=== PATIENT | female | born 1985 | race Caucasian/White ===

== ENCOUNTER 2024-06-02 03:23 | Emergency (ER) | payer OTHER, SELFPAY ==
[2024-06-02 03:23] VITALS: BMI 39.6
[2024-06-02 03:29] VITALS: BP 159/105; PULSE 83; RESP 18; TEMP 36.6; O2SAT 97
--- NOTE | 2024-06-02 03:34 | XR_ITS ---
Examination: CT abdomen and pelvis without contrast. Coronal 3-D reconstructions. Sagittal 2-D reconstructions. Date and time of exam:June 02, 2024 0445 hrs. Indications: Upper abdominal pain epigastric pain today, history gallstones diagnosed one year ago CTDI: vol (mGy): 13.81 DLP: (mGycm): 875 Technique: Axial images of the abdomen have been obtained, 3 mm slice thickness Intravenous contrast material has not been administered. Low dose protocols were performed. One or more of the following dose reduction techniques were used; automated exposure control, adjustment of the mA and/or KV according to patient size, use of iterative reconstruction technique. Findings: No focal liver or splenic lesions Cholelithiasis, gallbladder wall does not appear thickened No pancreatic or adrenal mass Minimal left hydronephrosis secondary to 7 mm proximal left ureteral calculus Aorta normal size Normal appendix No bowel obstruction No pelvic mass No bladder mass or bladder calculi Intact osseous structures Impression: Cholelithiasis, negative for cholecystitis Minimal left hydronephrosis secondary to 7 mm proximal left ureteral calculus
--- NOTE | 2024-06-02 03:34 | XR_ITS ---
Examination: Abdomen sonogram, Limited Date and time of exam: June 02, 2024 0418 hrs. Indications: Onset severe epigastric pain and nausea beginning 9:00 PM last night Technique: Real-time rahman scale transabdominal sonographic images of the upper abdomen obtained. Findings: Multiple gallstones Gallbladder wall 0.3 cm no edema Common bile duct 0.3 cm Pancreatic head 2.3 cm Liver 22 cm fatty infiltration mildly lobular contour no focal liver lesions Normal hepatopedal portal venous flow Patent IVC Impression: Cholelithiasis, negative for cholecystitis Significant hepatomegaly fatty liver suspect primary hepatocellular disease
--- NOTE | 2024-06-02 03:45 | PD.EDABDPN ---
ED Abdominal Pain RME/HPI General Chief Complaint: Abdominal Pain Stated complaint: EPIGASTRIC PAIN HX GALLSTONES Time seen by provider: 06/02/24 03:27 Arrival date/time: 06/02/24 03:23 RME / HPI RME / HPI narrative: This section includes all my notes and documentations, including HPI, PE, and ED course. Franklin Good MD HPI: 39-year-old female here with severe epigastric pain and severe nausea for the past several hours. Has known gallstones. No fever. No urinary symptoms. Had abdominal surgery due to endometriosis. No history of other abdominal surgery. No other complaints. ROS: All negative except as documented in HPI. Physical Exam: General: Alert and oriented. In severe pain. Eyes: Conjunctivae and lids clear. ENT: No nasal congestion. Neck: Supple. Heart: RRR. Lungs: No respiratory distress. Good air movement. No rhonchi, wheezing, rales. Abdomen: Soft with severe epigastric tenderness. Normal bowel sounds. No distension. No rebound or guarding. Back: No CVA tenderness. Skin: Warm and dry. Neuro: Alert and oriented X 3. I ordered Zofran and Toradol and morphine and diagnostic tests. At 6 AM on 06/02/2024, the care of the patient was transferred to Dr. HINSON. Franklin Good MD Related Data Home Medications ?Medication ?Instructions ?Recorded ?Confirmed labetalol 200 mg tablet 200 mg PO TID 04/29/19 05/07/19 Previous Rx's ?Medication ?Instructions ?Recorded acetaminophen 325 mg tablet 325 - 650 mg (1 - 2 x 325 mg) PO 06/02/19 (Tylenol) Q4H #30 tabs diphenhydramine HCl 25 mg tablet 25 mg PO Q6H #30 tabs 06/02/19 (Benadryl Allergy) guaifenesin 400 mg tablet 400 mg PO Q6H #20 tabs 06/02/19 Allergies Allergy/AdvReac Type Severity Reaction Status Date / Time niacin Allergy Severe Anaphylaxis Verified 06/02/24 03:24 Bee Stings Allergy Severe Anaphylaxis Uncoded 06/02/24 03:24 Course Quality Measures none Orders Category Date Time Status Saline [Insert IV] NOW Care 06/02/24 03:33 Active Straight [In and Out Catheter] X1 Care 06/02/24 03:[address] abdomen pelvis wo con Stat Exams 06/02/24 03:34 Taken US gall bladder Stat Exams 06/02/24 03:34 Taken Amylase Stat Lab 06/02/24 04:05 Completed CBC Stat Lab 06/02/24 04:05 Completed CMP [Comprehensive Metabolic Panel] Stat Lab 06/02/24 04:05 Completed HCG Qualitative,Urine Stat Lab 06/02/24 03:34 Ordered HCG,Qualitative Serum Stat Lab 06/02/24 04:05 Completed Lipase Stat Lab 06/02/24 04:05 Completed Magnesium Stat Lab 06/02/24 04:05 Completed UA, C/S IF [Urinalysis, C/S if Indicated] Stat Lab 06/02/24 03:34 Ordered Ketorolac Inj [Toradol Inj] Med 06/02/24 03:33 Discontinued 30 mg IVP X1 ONE Morphine Inj Med 06/02/24 03:33 Discontinued 5 mg IVP X1 ONE Ondansetron Inj [Zofran Inj] Med 06/02/24 03:33 Discontinued 4 mg IV X1 ONE Vital Signs Vital signs: Vital Signs Temperature 98 F 06/02/24 03:29 Pulse Rate 83 06/02/24 03:29 Respiratory Rate 18 06/02/24 03:29 Blood Pressure 159/105 H 06/02/24 03:29 Pulse Oximetry (%) 97 06/02/24 03:29 Oxygen Delivery Method Room Air 06/02/24 03:29 Abdominal Pain MDM Patient data External records reviewed:: [facility] previous records Clinical information provided by:: patient Social determinants that could affect healthcare access:: none Patient has the following chronic illnesses:: Colitis How is presenting disease/condition affected by chronic disease/condition?: uneffected by Evaluation data The following diagnostics were reviewed and interpreted by me:: other (specify) (Diagnostic tests pending) Lab and/or radiology exams considered but not ordered:: None Interpretation Summary: Diagnostic test results pending Medications / Prescriptions Medications or Prescriptions considered but not ordered:: None Medication administrations:: Medication Administration History Discontinued Medications Ketorolac Tromethamine (Ketorolac Inj 30 Mg/Ml Vial) 30 mg IVP X1 ONE Stop: 06/02/24 03:34 Morphine Sulfate (Morphine Sulf Inj 10 Mg/Ml Vial) 5 mg IVP X1 ONE Stop: 06/02/24 03:34 Ondansetron HCl (Ondansetron Inj 2 Mg/Ml Inj 2 Ml) 4 mg IV X1 ONE; Protocol Stop: 06/02/24 03:34 Zofran and Toradol and morphine Consultations Consultation(s) initiated? (list below): No Diagnosis Differential diagnosis abdominal pain: acute appendicitis, calculus of kidney, constipation, diverticulitis, endometriosis, gastroenteritis, pancreatitis and small bowel obstruction Most likely diagnosis given after review of the tests above:: Diagnostic test results pending Admission Indicated Admission indicated?: not indicated Explain why admission is indicated or not indicated:: Diagnostic test results pending Admission Request Was there a request for admission?: No Disposition Plan Disposition Plan: other (specify) (Care of the patient was Dr. HINSON) Discharge Plan Prescriptions/Referrals Prescriptions/Med Rec: No Action labetalol 200 mg Tablet 200 mg PO TID diphenhydramine HCl [Benadryl Allergy] 25 mg tablet 25 mg PO Q6H Qty: 30 0RF guaifenesin 400 mg tablet 400 mg PO Q6H Qty: 20 0RF acetaminophen [Tylenol] 325 mg tablet 325 - 650 mg PO Q4H Qty: 30 0RF Referrals: No Primary/Family,Physician [Primary Care Provider] - In 1 week Problem List Clinical Impression: Abdominal pain Patient/Caregiver Discharge Instructions Print Language: Citizen Of [place]
[2024-06-02 04:20] LABS: Basophils # (Auto) 0.1 Thou/mm3 (0.0-0.2); Basophils % (Auto) 1 % (0-2.5); Eosinophils # (Auto) 0.3 Thou/mm3 (0.0-0.5); Eosinophils % (Auto) 2 % (0-10); Hematocrit 34.1 % (36.0-46.0); Immature Granulocytes % (Auto) 0 % (0-0); Immature Granulocytes Auto 0.02 Thou/mm3 (0.00-0.00); Lymphocytes # (Auto) 6.1 Thou/mm3 (1.0-4.8); Lymphocytes % (Auto) 51 % (10-50); Mean Corpuscular HGB Conc 32.3 g/dl (31.0-37.0); Mean Corpuscular Hemoglobin 26.3 pg (25.0-35.0); Mean Corpuscular Volume 81 fL (80-100); Monocytes # (Auto) 0.8 Thou/mm3 (0.0-0.8); Monocytes % (Auto) 6 % (0-12); Neutrophils # (Auto) 4.8 Thou/mm3 (1.8-7.7); Neutrophils % (Auto) 40 % (37-80); Nucleated Red Blood Cell % 0 /100 WBC (0); Platelet Count 269 Thou/mm3 (140-440); RDW Standard Deviation 46.3 fL (36.4-46.3); Red Blood Count 4.19 Miln/mm3 (4.00-5.20)
[2024-06-02 04:37] LABS: HCG,Qualitative Serum Negative
[2024-06-02 04:40] LABS: Alanine Aminotransferase 16 U/L (10-49); Albumin, Serum 4.2 gm/dL (3.5-5.0); Albumin/Globulin Ratio 1.6 (1.2-2.2); Alkaline Phosphatase 72 U/L (46-116); Amylase 49 U/L (30-118); Anion Gap 7 (7-16); Aspartate Amino Transferase < 10 U/L (0-34); BUN/Creatinine Ratio 14 Ratio (12-20); Bilirubin,Total 0.2 mg/dL (0.3-1.2); Blood Urea Nitrogen 11 mg/dL (9-23); Calcium 9.5 mg/dL (8.3-10.6); Calcium (Corrected) 9.5 mg/dL (8.5-10.1); Carbon Dioxide 24.1 mMol/L (20.0-31.0); Chloride 106 mMol/L (98-107); Creatinine (Component) 0.8 mg/dL (0.6-1.3); Estimated Creatinine Clearance 115.3 mL/min (>60); Globulin 2.6 gm/dL (2.3-3.5); Glucose 105 mg/dL (74-106); Lipase 51 U/L (12-53); Magnesium 1.8 mg/dL (1.6-2.6); Osmolality,Calculated 273 (275-295); Potassium 3.8 mMol/L (3.4-5.1); Sodium 137 mMol/L (136-145); Total Protein 6.8 gm/dL (5.7-8.2); eGFR > 60 See Note
--- NOTE | 2024-06-02 05:06 | PRELIM_ITS ---
Right upper quadrant abdominal ultrasound with doppler and wave doppler spectral analysis. May 092023 at 0418 hours Clinical history: RUQ tenderness. Technique: Grayscale and color flow images of the right upper quadrant are provided. Hepatic and portal veins were also imaged with color flow steve ges. Correlated with the prior CT study dated December 14, 2016.Findings:The liver is enlarged and demonst rates increased echogenicity. No intrahepatic biliary ductal dilatation. Gallstones. No gallbladder w all thickening or pericholecystic fluid is demonstrated. The common bile duct is normal in caliber at 3.0 mm. The pancreas is unremarkable to the extent visualized. The right kidney is within normal contreras its.The portal vein is patent with hepatopetal flow and normal wave Doppler spectral analysis.The hep atic veins are patent with normal wave Doppler spectral analysis.The inferior vena cava is patent.Mur phy sign is not available at the time of this report.Impression:Gallstones without evidence of acute cholecystitis.Hepatomegaly associated with liver steatosis is suspicious for steatohepatitis. Report Electronically Signed By: Jerry Paulson 06/02/2024 5:05:30 AM [EST]
--- NOTE | 2024-06-02 05:26 | PRELIM_ITS ---
CT scan of the abdomen and pelvis without intravenous contrast (axial sections with sagittal and lluvia nal reformats) June 02, 2024 0455 hoursClinical History: Upper abdominal painComparison:Ultrasoun d abdomenfrom earlier the same day.Findings:The lung bases are clear.There are multiple noncalcifuied gallstones.There is a 6 mm obstructing calculus in the left proximal ureter with mild hydroureterone phrosis. There is hepatomegaly.The pancreas, spleen and adrenals are unremarkable on this noncontrast study.No evidence of bowel obstruction. The appendix is within normal limits (images [id number]). Th ere is no mesenteric or retroperitoneal adenopathy.The urinary bladder is unremarkable. There is no f ree air. There is trace fluid in the pelvis.The uterus and adnexa are unremarkable.The osseous struct ures are unremarkable.Impression:1. Cholelithiasis.2. A 6 mm obstructing calculus in the left proxima l ureter with mild hydroureteronephrosis.3. Trace fluid in the pelvis4. Other findings as described a ladan. Report Electronically Signed By: Mercy Gautam 06/02/2024 5:26:15 AM [EST]
[2024-06-02] MEDS: MORPHINE SULF INJ 10 MG/ML VIAL 5 MG IVP (06:09)
[2024-06-02] MEDS: KETOROLAC INJ 30 MG/ML VIAL IVP (06:10)
[2024-06-02] MEDS: ONDANSETRON INJ 2 MG/ML INJ 2 ML 4 MG IV (06:10)
[2024-06-02 06:28] VITALS: PULSE 66; RESP 18; TEMP 36.7; O2SAT 98
[2024-06-02] MEDS: HYDROmorphone INJ 2 MG/ML VIAL 1 MG IVP (07:17)
--- NOTE | 2024-06-02 07:47 | PC.NURSE ---
Pt gcs 15 on stretcher, denies any pain a this time.
[2024-06-02 08:32] LABS: Collection Type, Urine Clean Catch
[2024-06-02] MEDS: TAMSULOSIN HCL 0.4 MG CAPSULE PO (08:34)
[2024-06-02] MEDS: SODIUM CHLORIDE 0.9% 1000 ML 1,000 ML 999 ML IV (08:35)
[2024-06-02 08:38] LABS: Bilirubin,Urine Negative (Negative); Blood,Urine Negative (Negative); Clarity,Urine Clear (Clear/Hazy); Color,Urine Lt-Yellow (Lt Yel-Yel); Culture Indicated,Urine Not Indicated; Glucose, Urine Negative (Negative); Ketones,Urine Negative (Negative); Leukocyte Esterase,Urine Positive (Negative); Nitrite,Urine Negative (Negative); Protein,Urine Negative (Neg - Trace); RBC,Urine 5 /hpf (0-3); Specific Gravity,Urine 1.019 (1.001-1.035); Squamous Epithelial Cell,Urine 3 /hpf (0-5); Urobilinogen,Urine Negative mg/dL (0.0-1.0); WBC,Urine 4 /hpf (0-5)
[2024-06-02 08:49] VITALS: BP 169/88; PULSE 65; RESP 18; TEMP 36.5; O2SAT 100
[2024-06-02 09:03] LABS: HCG Qualitative,Urine Negative
[2024-06-02] MEDS: LIDOCAINE VISCOUS 2% 15 ML UDC PO (09:08)
[2024-06-02] MEDS: MG HYD/AL HYD/SIME (Maalox Reg) SUSP 30 ML UDC PO (09:08)
[2024-06-02 10:42] VITALS: BP 151/105; PULSE 64; RESP 18; TEMP 36.8; O2SAT 100
[2024-06-02] MEDS: HYDROcodone/APAP 5/325 TABLET 1 TAB PO (11:26)
--- NOTE | 2024-06-02 16:00 | EDNOTE_ITS ---
Emergency Room Addendum Addendum Narrative: 1800: Care assumed from Dr. Good, the previous shift emergency physician. Past medical, surgical, social and family history reviewed. Vitals and home medications reviewed. I will assume the care of the patient at this time. Please refer to the emergency department record for history and examination from initial visit.? Physical exam by me shows patient under no acute distress at this time. 1100: Patient remains clinically stable throughout the emergency department visit. Re-assessment at the time of disposition demonstrates that the patient is in no acute distress. We reviewed all the results, analysis, and treatment plans. Patient is amenable to discharge. Strict return precautions were outlined. Patient was discharged in stable condition. Diagnoses: Abdominal pain, cholelithiasis, left ureteral calculus. RADIOLOGY Procedure(s): gall bladder Accession Number(s): [id number] cc: Franklin Good MD; Thiago Medley MD; NO PRIMARY/FAMILY,PHYSICIAN~ Examination: Abdomen sonogram, Limited Date and time of exam: June 02, 2024 0418 hrs. Indications: Onset severe epigastric pain and nausea beginning 9:00 PM last night Technique: Real-time rahman scale transabdominal sonographic images of the upper abdomen obtained. Findings: Multiple gallstones Gallbladder wall 0.3 cm no edema Common bile duct 0.3 cm Pancreatic head 2.3 cm Liver 22 cm fatty infiltration mildly lobular contour no focal liver lesions Normal hepatopedal portal venous flow Patent IVC Impression: Cholelithiasis, negative for cholecystitis Significant hepatomegaly fatty liver suspect primary hepatocellular disease Dictated By: Thiago Medley MD Procedure(s): CT abdomen pelvis wo con Accession Number(s): [id number] cc: Franklin Good MD; Thiago Medley MD; NO PRIMARY/FAMILY,PHYSICIAN~ Examination: CT abdomen and pelvis without contrast. Coronal 3-D reconstructions. Sagittal 2-D reconstructions. Date and time of exam:June 02, 2024 0445 hrs. Indications: Upper abdominal pain epigastric pain today, history gallstones diagnosed one year ago CTDI: vol (mGy): 13.81 DLP: (mGycm): 875 Technique: Axial images of the abdomen have been obtained, 3 mm slice thickness Intravenous contrast material has not been administered. Low dose protocols were performed. One or more of the following dose reduction techniques were used; automated exposure control, adjustment of the mA and/or KV according to patient size, use of iterative reconstruction technique. Findings: No focal liver or splenic lesions Cholelithiasis, gallbladder wall does not appear thickened No pancreatic or adrenal mass Minimal left hydronephrosis secondary to 7 mm proximal left ureteral calculus Aorta normal size Normal appendix No bowel obstruction No pelvic mass No bladder mass or bladder calculi Intact osseous structures Impression: Cholelithiasis, negative for cholecystitis Minimal left hydronephrosis secondary to 7 mm proximal left ureteral calculus Dictated By: Thiago Medley MD
== END 2024-06-02 11:30 | disposition home or self-care (01) ==
PROVIDERS: Emergency Medicine; Emergency Provider Emergency Medicine
DX: K80.20 Calculus of gallbladder without cholecystitis without obstruction (principal); N13.2 Hydronephrosis with renal and ureteral calculous obstruction; K76.0 Fatty (change of) liver, not elsewhere classified
CPT/HCPCS: 36415; 74176; 76705; 80053; 81001; 81025; 82150; 83690; 83735; 84703; 85025; 96374; 96375; 99284; J1885; J2270; J2405; J3490; J7030; A9270

== ENCOUNTER 2024-07-09 17:45 | Emergency (ER) | payer OTHER, SELFPAY ==
[2024-07-09 17:46] VITALS: BMI 39.6
[2024-07-09 18:46] VITALS: BP 145/89; PULSE 78; RESP 26; TEMP 36.8; O2SAT 100
[2024-07-09] MEDS: FAMOTIDINE 20 MG TABLET 40 MG PO (18:58)
[2024-07-09] MEDS: MG HYD/AL HYD/SIME (Maalox Reg) SUSP 30 ML UDC PO (18:58)
[2024-07-09] MEDS: LIDOCAINE VISCOUS 2% 15 ML UDC PO (18:58)
--- NOTE | 2024-07-09 18:59 | PD.EDABDPN ---
ED Abdominal Pain RME/HPI General Chief Complaint: Abdominal Pain Stated complaint: GALLSTONES Time seen by provider: 07/09/24 18:53 Arrival date/time: 07/09/24 17:45 39F with history of HTN and Von Willebrand's disease presents to ED with 1 day of RUQ/epigastric pain. Patient only wants GI cocktail and no diagnostics. Patient has outpatient cholecystectomy scheduled. Limitations: no limitations Related Data Home Medications ?Medication ?Instructions ?Recorded ?Confirmed labetalol 200 mg tablet 200 mg PO TID 04/29/19 05/07/19 Previous Rx's ?Medication ?Instructions ?Recorded acetaminophen 325 mg tablet 325 - 650 mg (1 - 2 x 325 mg) PO 06/02/19 (Tylenol) Q4H #30 tabs diphenhydramine HCl 25 mg tablet 25 mg PO Q6H #30 tabs 06/02/19 (Benadryl Allergy) guaifenesin 400 mg tablet 400 mg PO Q6H #20 tabs 06/02/19 ibuprofen 600 mg tablet 600 mg PO Q6H PRN pain #30 tabs 06/02/24 tamsulosin 0.4 mg capsule 0.4 mg PO QDAY #14 caps 06/02/24 Allergies Allergy/AdvReac Type Severity Reaction Status Date / Time niacin Allergy Severe Anaphylaxis Verified 07/09/24 17:45 Bee Stings Allergy Severe Anaphylaxis Uncoded 07/09/24 17:45 Review of Systems Review of Systems Systems Reviewed: All systems reviewed, normal except as documented Constitutional Constitutional: Reports system reviewed and no additional complaints, except as documented, Denies fever(s) and Denies headache(s) ENT Ears, Nose, Mouth, and Throat: Denies disequilibrium and Denies headache(s) Cardiovascular Cardiovascular: Reports system reviewed and no additional complaints, except as documented, Denies chest pain and Denies dyspnea Respiratory Respiratory: Reports system reviewed and no additional complaints, except as documented, Denies cough and Denies dyspnea Gastrointestinal Gastrointestinal: Reports system reviewed and no additional complaints, except as documented, Reports as per HPI, Reports abdominal pain, Denies nausea and Denies vomiting Neurologic Neurologic: Reports system reviewed and no additional complaints, except as documented, Denies confusion, Denies disequilibrium and Denies headache(s) Psychiatric Psychiatric: Denies confusion Past Medical History Past Medical History CARDIAC: Positive Cardiac Disorders and Hypertension; Negative Congestive Heart Failure RESPIRATORY: Negative Chronic Obstructive Pulmonary Disease (COPD) GENITOURINARY: Negative Renal Disease REPRODUCTIVE: Positive Previous Pregnancies (1) ENDOCRINE: Negative Diabetes Mellitus Type 1 or Diabetes Mellitus Type 2 Surgical History SURGICAL: Positive Section (c/s x1 breech) Social History SMOKING STATUS: Current every day smoker SECOND HAND EXPOSURE: Yes ED Exam General Limitations: Present no limitations General appearance: Present alert and in no apparent distress Head Head exam: Present atraumatic Eye Eye exam: Present normal appearance, PERRL and EOMI ENT ENT exam: Present normal exam, normal oropharynx and mucous membranes moist Neck Neck exam: Present normal inspection, full ROM and trachea midline Chest Chest inspection: Present normal inspection and symmetric chest wall rise Respiratory Respiratory exam: Present normal lung sounds bilaterally Cardiovascular Cardiovascular exam: Present regular rate, normal rhythm and normal heart sounds Abdominal Exam Abdominal exam: Present soft and normal bowel sounds Extremities Exam Extremities exam: Present normal inspection and full ROM Back Exam Back exam: Present normal inspection and full ROM Neurological Exam Neurological exam: Present alert, oriented X3 and CN II-XII intact Psychiatric Psychiatric exam: Present normal affect and normal mood Skin Skin exam: Present warm, dry, intact and normal color Course Quality Measures none Orders Category Date Time Status US gall bladder Stat Exams 07/09/24 20:14 Stop Req Famotidine [Pepcid] Med 07/09/24 18:54 Discontinued 40 mg PO X1 ONE HYDROcodone*/APAP 5/325 [Edison 5/325] Med 07/09/24 20:14 Discontinued 1 tab PO X1 ONE Lidocaine 2% Viscous [Xylocaine 2% Viscous] Med 07/09/24 18:54 Discontinued 15 ml PO X1 ONE mg Hyd/Al Hyd/Darrell Susp [Maalox Susp] Med 07/09/24 18:54 Discontinued 30 ml PO X1 ONE Vital Signs Vital signs: Vital Signs Temperature 98.2 F 07/09/24 18:46 Pulse Rate 78 07/09/24 18:46 Respiratory Rate 26 H 07/09/24 18:46 Blood Pressure 145/89 H 07/09/24 18:46 Pulse Oximetry (%) 100 07/09/24 18:46 Oxygen Delivery Method Room Air 07/09/24 18:46 O2 at 100% on RA and WNLs Abdominal Pain MDM MDM Narrative MDM Narrative:: 39F with history of HTN and Von Willebrand's disease presents to ED with 1 day of RUQ/epigastric pain. Patient only wants GI cocktail and no diagnostics. Patient has outpatient cholecystectomy scheduled. Physical exam reveals no ab tenderness. Patient is afebrile, calm, and alert. Meds improved symptoms. Patient data External records reviewed:: [facility] previous records Clinical information provided by:: patient Social determinants that could affect healthcare access:: none Patient has the following chronic illnesses:: HTN and Von Willebrand's disease How is presenting disease/condition affected by chronic disease/condition?: no chronic disease Evaluation data The following diagnostics were reviewed and interpreted by me:: other (specify) (none) Lab and/or radiology exams considered but not ordered:: not ordered Interpretation Summary: n/a Medications / Prescriptions Medications or Prescriptions considered but not ordered:: ordered Medication administrations:: Medication Administration History Discontinued Medications Hydrocodone Bitart/Acetaminophen (Hydrocodone/Apap 5/325 Tablet) 1 tab PO X1 ONE Stop: 07/09/24 20:15 Last Admin: 07/09/24 20:22 Dose: 1 tab Documented By: BRADY Al Hydrox/Mg Hydrox/Simethicone (Mg Hyd/Al Hyd/Darrell (Maalox Reg) Susp 30 Ml Udc) 30 ml PO X1 ONE Stop: 07/09/24 18:55 Last Admin: 07/09/24 18:58 Dose: 30 ml Documented By: BRADY Famotidine (Famotidine 20 Mg Tablet) 40 mg PO X1 ONE Stop: 07/09/24 18:55 Last Admin: 07/09/24 18:58 Dose: 40 mg Documented By: BRADY Lidocaine HCl (Lidocaine Viscous 2% 15 Ml Udc) 15 ml PO X1 ONE Stop: 07/09/24 18:55 Last Admin: 07/09/24 18:58 Dose: 15 ml Documented By: BRADY above Consultations Consultation(s) initiated? (list below): No Diagnosis Differential diagnosis abdominal pain: abdominal pain, acute appendicitis, calculus of kidney, constipation, diverticulitis, endometriosis, gastroenteritis, pancreatitis, small bowel obstruction and other (gastritis ) Most likely diagnosis given after review of the tests above:: ab pain Admission Indicated Admission indicated?: not indicated Admission Request Was there a request for admission?: No Disposition Plan Disposition Plan: Discharge Discharge Attestation Discharge Attestation: The patient and all family members were given an opportunity to ask questions and understood the discharge instructions. Discharge instructions specifically effects, indications for sooner follow up or return to the emergency department, and the expected course of current diagnosis. Patient condition: Stable Discharge Plan Plan Patient Disposition: HOME (Self Care) Disposition Comment: STable Prescriptions/Referrals Prescriptions/Med Rec: No Action labetalol 200 mg Tablet 200 mg PO TID diphenhydramine HCl [Benadryl Allergy] 25 mg tablet 25 mg PO Q6H Qty: 30 0RF guaifenesin 400 mg tablet 400 mg PO Q6H Qty: 20 0RF acetaminophen [Tylenol] 325 mg tablet 325 - 650 mg PO Q4H Qty: 30 0RF tamsulosin 0.4 mg capsule 0.4 mg PO QDAY Qty: 14 0RF ibuprofen 600 mg tablet 600 mg PO Q6H PRN (Reason: pain) Qty: 30 0RF Referrals: No Primary/Family,Physician [Primary Care Provider] - In 1 week Problem List Clinical Impression: Abdominal pain Patient/Caregiver Discharge Instructions Education Materials: ED Abdominal Pain Unkn Cause Fem Additional Instructions: Please follow-up with PCP within 24-48 hours and return immediately if symptoms worsen. Print Language: Persian Stand Alone Forms: Patient Portal Info Letter PA/AUTOMATIC CAR WASH ATTENDANT Supervising Physician MAURICE/AUTOMATIC CAR WASH ATTENDANT Supervising Physician: Dr. Ashraf
[2024-07-09] MEDS: HYDROcodone/APAP 5/325 TABLET 1 TAB PO (20:22)
[2024-07-09 21:36] VITALS: BP 145/82; PULSE 73; RESP 18; TEMP 36.6; O2SAT 98
== END 2024-07-09 22:19 | disposition home or self-care (01) ==
PROVIDERS: Emergency Provider Emergency Medicine
DX: R10.13 Epigastric pain (principal)
CPT/HCPCS: 99284; J3490; A9270

== ENCOUNTER 2024-10-01 06:27 | Inpatient (IN) | payer OTHER, SELFPAY ==
[2024-10-01] VITALS (10 sets, daily range): BP systolic 133–151; BP diastolic 72–88; PULSE 64–90; RESP 12–98; TEMP 36.6–36.9; O2SAT 98–100; BMI 38.2
--- NOTE | 2024-10-01 | XR_ITS ---
Examinations: MRI Brain without intravenous contrast. MRA brain without intravenous contrast. MRA carotids without intravenous contrast 3-D vascular reconstructions Date and time of exam: October 01, 2024 at 10:00 AM Indication: Stroke alert, onset slurred speech right arm weakness right facial droop beginning this morning Technique: Multiple axial and sagittal images of the brain have been obtained MRA brain carotid images without contrast obtained, including 3-D postprocessing, vascular maximum intensity projection images Findings: Sellaturcica is not enlarged. The optic chiasm and infundibular stalk are not remarkable. Prepontine and interpeduncular cisterns are not enlarged. No localized enlargement of the medulla or keo. Fourth ventricle and cerebellar tonsils normal in position. Subacute hemorrhage is not seen. Fourth ventricle is midline. Mass in the cerebellopontine angle region is not evident. 7th and 8th nerve complexes exhibits symmetry. Globes are symmetrical with no retro-orbital mass. Increased white matter signal not seen Diffusion-weighted images demonstrate subtle foci restricted diffusion left caudate nucleus, diffusion image 16 with signal deficit at this site on the ADC map, restricted diffusion extending into the left basal ganglia more well-defined on diffusion image 14 measuring 14 mm Mass-effect upon the ventricular system is not identified. MRA carotid images degraded by patient motion. 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
--- NOTE | 2024-10-01 06:29 | PD.EDNEURO ---
Neuro Symptoms Deficit-RME/HPI General Chief Complaint: Neuro Symptoms/Deficit Stated Complaint: POSSIBLE STROKE Time Seen by Provider: 10/01/24 06:30 Arrival date/time: 10/01/24 06:27 RME / HPI RME / HPI Narrative: 39 year old female with history of hypertension and von Willebrand disease presents to the ED BIBA from home for evaluation of slurred speech, right arm weakness, and right facial droop beginning this morning while getting ready. Last was last known well at 06:00 AM today. Per medics, on their assessment patient had right facial droop, right arm drift, and slurred speech. G-FAST of 3. Prehospital BS 113, blood pressure 148/84, HR 82, o2 98% on room air. Patient denies any history of similar symptoms. It was later noted that the patient went to bed at 01:00 AM and at 06:00 AM today the son noted the slurred speech. Updated last known well is 01:00 AM today. Related Data Home Medications ?Medication ?Instructions ?Recorded ?Confirmed labetalol 200 mg tablet 200 mg PO TID 04/29/19 05/07/19 Previous Rx's ?Medication ?Instructions ?Recorded acetaminophen 325 mg tablet 325 - 650 mg (1 - 2 x 325 mg) PO 06/02/19 (Tylenol) Q4H #30 tabs diphenhydramine HCl 25 mg tablet 25 mg PO Q6H #30 tabs 06/02/19 (Benadryl Allergy) guaifenesin 400 mg tablet 400 mg PO Q6H #20 tabs 06/02/19 ibuprofen 600 mg tablet 600 mg PO Q6H PRN pain #30 tabs 06/02/24 tamsulosin 0.4 mg capsule 0.4 mg PO QDAY #14 caps 06/02/24 Allergies Allergy/AdvReac Type Severity Reaction Status Date / Time niacin Allergy Severe Anaphylaxis Verified 07/09/24 17:45 Bee Stings Allergy Severe Anaphylaxis Uncoded 07/09/24 17:45 Review of Systems Review of Systems Narrative Review of Systems: GEN: No fever, no chills, no weight loss EYES: No discharge, no pain HEENT: No ear pain, no congestion, no sore throat PULM: No shortness of breath, no cough, no congestion CV: No chest pain, no dyspnea on exertion, no palpitations GI: No nausea, no vomiting, no diarrhea, no pain, no constipation : No frequency, no urgency, no dysuria MUSC/SKEL: No joint pain, no back pain SKIN: No rash NEURO: +right arm weakness, +slurred speech, +right facial droop, no headache Past Medical History Past Medical History CARDIAC: Positive Cardiac Disorders and Hypertension; Negative Congestive Heart Failure RESPIRATORY: Negative Chronic Obstructive Pulmonary Disease (COPD) GENITOURINARY: Negative Renal Disease REPRODUCTIVE: Positive Previous Pregnancies (1) ENDOCRINE: Negative Diabetes Mellitus Type 1 or Diabetes Mellitus Type 2 Surgical History SURGICAL: Positive Section (c/s x1 breech) Social History SMOKING STATUS: Light (< 1 pack/day) SECOND HAND EXPOSURE: Yes ED Exam Narrative Physical exam: GENERAL APPEARANCE: alert and oriented x 4, well-developed, well-nourished HEENT: Normocephalic, atraumatic; pupils equal, round, reactive to light; EOMI; mucous membranes pink, moist; oropharynx clear NECK: Supple LUNGS: CTABL; no wheezes, no rales, no rhonchi HEART: Regular rate, regular rhythm; normal S1, S2; no murmurs ABDOMEN: non distended; normal BS; soft, no tenderness, no guarding, no rebound; no masses, no organomegaly, no hernia BACK: no CVA tenderness EXTREMITIES: atraumatic; no edema NEUROLOGIC: awake; alert and oriented x4; 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 PSYCHIATRIC: appropriate mood and affect SKIN: warm, dry, normal color; no rashes Course Quality Measures Suspected type of Stroke: Unknown at this time Last known well (date): 10/01/24 Last known well (time): 01:00 Tenecteplase given: Reason(s) TPA not given: Outside the time window not given stroke Orders Category Date Time Status Bedside Blood Glucose NOW Care 10/01/24 06:29 Active World Designer NOW Care 10/01/24 06:29 Active Continuous Pulse Oximetry NOW Care 10/01/24 06:29 Active EKG (ED ONLY) *Do not use* NOW Care 10/01/24 06:29 Active In and Out Catheter NEEDED Care 10/01/24 06:29 Active Insert IV NOW Care 10/01/24 06:29 Active NIH Stroke Scale now Care 10/01/24 06:29 Active NPO NOW Care 10/01/24 06:29 Active Nurse Swallow Screen x1 Care 10/01/24 06:29 Active Consult to Neurology / Tele-Neurology Routine Cons 10/01/24 06:[address] angio stroke protocol Stat Exams 10/01/24 06:[address] stroke protocol Stat Exams 10/01/24 06:29 Completed EKG (ED Only) Stat Exams 10/01/24 06:29 Ordered Alcohol, Blood Medical Stat Lab 10/01/24 06:30 Completed B-Type Natriuretic Peptide Stat Lab 10/01/24 06:30 Received CBC Stat Lab 10/01/24 06:30 Completed Comprehensive Metabolic Panel Stat Lab 10/01/24 06:30 Completed Drug Screen,Urine Stat Lab 10/01/24 06:29 Ordered HCG Titer if Positive Stat Lab 10/01/24 06:30 Completed Magnesium Stat Lab 10/01/24 06:30 Completed Partial Thromboplastin Time Stat Lab 10/01/24 06:30 Completed Prothrombin Time with INR Stat Lab 10/01/24 06:30 Completed Troponin I Stat Lab 10/01/24 06:30 Completed Urinalysis Stat Lab 10/01/24 06:29 Ordered Urine Culture Stat Lab 10/01/24 06:29 Ordered Ondansetron Inj [Zofran Inj] Med 10/01/24 06:29 Active 4 mg IV Q4HR PRN Oxygen Delivery NOW RT 10/01/24 06:29 Active Vital Signs Vital signs: Vital Signs Temperature 98 F 10/01/24 06:30 Pulse Rate 83 10/01/24 06:30 Respiratory Rate 19 10/01/24 06:30 Blood Pressure 151/88 H 10/01/24 06:30 Pulse Oximetry (%) 98 10/01/24 06:30 Oxygen Delivery Method Room Air 10/01/24 06:30 Pulse ox is 98% on room air which is adequate. Neuro Symptoms / Deficit MDM Narrative MDM Narrative:: IRose am scribing for and in the presence of Dr. Worthington. Patient data External records reviewed:: [facility] previous records (I reviewed ED visit on 07/10/2024 ) and EMS form Clinical information provided by:: patient and EMS Social determinants that could affect healthcare access:: none Patient has the following chronic illnesses:: Hypertension How is presenting disease/condition affected by chronic disease/condition?: exacerbated by Evaluation data The following diagnostics were reviewed and interpreted by me:: lab results, radiology exam(s) and EKG tracing(s) (EKG @ 07:05 am. Interpreted by me shows sinus rhythm, rate 71, Q-wave in V1 and V2, no acute ischemic changes. ) Lab and/or radiology exams considered but not ordered:: None Interpretation Summary: Ordering Physician: Elvira Worthington MD Date of Service: 10/01/24 Procedure(s): CT stroke protocol Accession Number(s): [id number] cc: Thiago Medley MD; Elvira Worthington MD~ Examination: CT brain head without contrast. 2-D sagittal coronal reconstructions Date and time of exam:October 01, 2024 at 0635 hours INDICATIONS: Stroke alert, onset focal neurologic deficit left-sided body weakness facial droop beginning 6:00 AM this morning CTDI: vol (mGy):50.6 DLP: (mGycm):946 Technique: Multiple CT axial sections of the brain have been obtained, 5 mm slice thickness. Contrast has not been administered. 2-D sagittal, coronal reconstructions have been obtained Low dose protocols were performed. One or more of the following dose reduction techniques were used; automated exposure control, adjustment of the mA and/or KV according to patient size, use of iterative reconstruction technique. Findings: No significant ventricular enlargement. Intra-axial or extra-axial hemorrhage density is not seen. No mass effect or midline shift Basal cisterns are not remarkable. Fourth ventricle is midline. Cranial vault intact. Impression: Negative for acute hemorrhage, mass effect or midline shift Dictated By: Thiago Medley MD Signed By: <Electronically signed by Thiago Medley MD in OV> 10/01/24 0647 Ordering Physician: Elvira Worthington MD Date of Service: 10/01/24 Procedure(s): CT angio stroke protocol Accession Number(s): [id number] cc: Thiago Medley MD; NO PRIMARY/FAMILY,PHYSICIAN; Elvira Worthington MD~ Examination: CTA carotids with intravenous contrast CTA brain, head with intravenous contrast. 2-D sagittal, coronal reconstructions. 3-D reconstructions. Exam date and time: October 01, 2024 0649 hours INDICATIONS: Stroke alert, onset focal neurologic deficit, left-sided facial weakness facial droop beginning 6:00 AM this morning Technique: Multiple CTA axial brain, head carotid images post intravenous contrast injection 75 cc, Isovue-[id number]. 2-D sagittal, coronal reconstructions. 3-D reconstructions, 3-D post processing including vascular maximum intensity projection images. Low dose protocols were performed. One or more of the following dose reduction techniques were used; automated exposure control, adjustment of the mA and/or KV according to patient size, use of iterative reconstruction technique. Findings: 10 mm pulmonary nodule left upper lobe image 202 No common carotid carotid bifurcation or internal carotid artery significant stenoses Mildly dominant right vertebral artery with no critical stenoses No cerebral vessel arterial occlusions thrombus or dissection IMPRESSION: 10 mm pulmonary nodule left upper lobe, recommend PA lateral chest follow-up No significant neck arterial stenoses No cerebral large vessel arterial occlusions Brain MRI follow-up would best assess for demyelinating disease, acute ischemic change Dictated By: Thiago Medley MD Signed By: <Electronically signed by Thiago Medley MD in OV> 10/01/24 0717 Medications / Prescriptions Medications or Prescriptions considered but not ordered:: None Medication administrations:: Medication Administration History Ondansetron HCl (Ondansetron Inj 2 Mg/Ml Inj 2 Ml) 4 mg IV Q4HR PRN PRN Reason: NAUSEA OR VOMITING Stop: 10/31/24 06:28 See above Consultations Consultation(s) initiated? (list below): Yes Consultation #1 (Physician, Specialty, Details): Per teleneurologist Dr. Pablo Mcwilliams's consultation note, the patient is not a candidate for TNK since her LKW is > 4.5 hours and has history of von Willebrand disease she is high risk for thrombolytic related complications. Consultation #2 (Physician, Specialty, Details): I spoke with resident Dr. Lorenzana working with Dr. Kyle regarding admission. Discussed patients PMHx, HPI, ED course, exam findings, labs, and radiology results. The hospitalist agree to accept the patient for admission. Diagnosis Neuro Differential Diagnosis: subarachnoid hemorrhage, cerebrovascular accident and transient cerebral ischemia Most likely diagnosis given after review of the tests above:: Right upper extremity weakness Admission Indicated Admission indicated?: indicated Admission Request Was there a request for admission?: Yes Admission Attestation Admission request attestation: Discussed case with [] from Hospitalist service regarding admission. Discussed patients ED course, exam findings, labs, and radiology results. The Hospitalist [agrees,declines] to accept the patient for admission. Disposition Plan Disposition Plan: Admit Discharge Plan Plan Patient Disposition: Admit Acute Care w/in Hospital Prescriptions/Referrals Prescriptions/Med Rec: No Action labetalol 200 mg Tablet 200 mg PO TID diphenhydramine HCl [Benadryl Allergy] 25 mg tablet 25 mg PO Q6H Qty: 30 0RF guaifenesin 400 mg tablet 400 mg PO Q6H Qty: 20 0RF acetaminophen [Tylenol] 325 mg tablet 325 - 650 mg PO Q4H Qty: 30 0RF tamsulosin 0.4 mg capsule 0.4 mg PO QDAY Qty: 14 0RF ibuprofen 600 mg tablet 600 mg PO Q6H PRN (Reason: pain) Qty: 30 0RF Problem List Clinical Impression: Right arm weakness Patient/Caregiver Discharge Instructions Print Language: Cypriot Stand Alone Forms: Itzel Award Info., Patient Portal Info Letter
--- NOTE | 2024-10-01 06:32 | PC.NURSE ---
[facility] CASE #[id number] created
[2024-10-01 07:04] LABS: INR 0.9 (0.9-1.3); Partial Thromboplastin Time 24.3 Seconds (22.0-36.0); Prothrombin Time 9.9 Seconds (9.0-12.2)
[2024-10-01 07:10] LABS: Basophils # (Auto) 0.1 Thou/mm3 (0.0-0.2); Basophils % (Auto) 1 % (0-2.5); Eosinophils # (Auto) 0.3 Thou/mm3 (0.0-0.5); Eosinophils % (Auto) 3 % (0-10); Hematocrit 34.6 % (36.0-46.0); Hemoglobin 11.3 g/dL (12.0-16.0); Immature Granulocytes % (Auto) 0 % (0-0); Immature Granulocytes Auto 0.03 Thou/mm3 (0.00-0.00); Lymphocytes # (Auto) 6.3 Thou/mm3 (1.0-4.8); Lymphocytes % (Auto) 54 % (10-50); Mean Corpuscular HGB Conc 32.7 g/dl (31.0-37.0); Mean Corpuscular Volume 83 fL (80-100); Monocytes # (Auto) 0.7 Thou/mm3 (0.0-0.8); Monocytes % (Auto) 6 % (0-12); Neutrophils # (Auto) 4.4 Thou/mm3 (1.8-7.7); Neutrophils % (Auto) 37 % (37-80); Nucleated Red Blood Cell % 0 /100 WBC (0); Platelet Count 245 Thou/mm3 (140-440); RDW Standard Deviation 45.4 fL (36.4-46.3); Red Blood Count 4.18 Miln/mm3 (4.00-5.20); White Blood Count 11.9 Thou/mm3 (3.6-11.0)
--- NOTE | 2024-10-01 07:12 | ESCONSULT_ITS ---
Tele Neuro Consultation Consultation Date 10/01/24 Most Recent Vital Signs Last Vital Signs Temp 98 F 10/01/24 06:30 Pulse 83 10/01/24 06:30 Resp 19 10/01/24 06:30 BP 151/88 H 10/01/24 06:30 Pulse Ox 98 10/01/24 06:30 O2 Del Method Room Air 10/01/24 06:30 Laboratory-Coagulation Panel PT 9.9 Seconds (9.0-12.2) 10/01/24 06:30 INR 0.9 (0.9-1.3) 10/01/24 06:30 APTT 24.3 Seconds (22.0-36.0) 10/01/24 06:30 Consultation Narrative [facility] TeleNeurology Consult Services Patient Name:???CHAD AUSTIN Date of :???1985 Identification Number:??? Date of Service:???10/01/2024 06:32:08 Diagnosis:?I63.312 - Cerebrovascular accident (CVA) due to thrombosis of left middle cerebral artery (HCCC) Impression: ?This patient is a 39-year-old female with a history of hypertension and von Willebrand disease presenting for evaluation of right sided weakness and dysarthria. The patient is out of the window for thrombolytics and given her history of von Willebrand disease she is high risk for thrombolytic related complications. CT angiogram does not appear to demonstrate evidence of large vessel occlusion. Recommend admission for MRI brain with and without contrast to rule out stroke and inflammatory disease respectively. If stroke is noted on MRI patient will need to thorough evaluation for underlying etiology given her young age including TTE, likely MIGUELINA, Holter monitor, and possibly hypercoagulability studies pending results. Our recommendations are outlined below. Recommendations: ? Stroke/Telemetry Floor ? Neuro Checks ? Bedside Swallow Eval ? DVT Prophylaxis ? IV Fluids, Normal Saline ? Head of Bed 30 Degrees ? Euglycemia and Avoid Hyperthermia (PRN Acetaminophen) ? Initiate or continue Aspirin 81 MG daily ? Antihypertensives PRN if Blood pressure is greater than 220/120 or there is a concern for End organ damage/contraindications for permissive HTN. If blood pressure is greater than 220/120 give labetalol PO or IV or Vasotec IV with a goal of 15% reduction in BP during the first 24 hours. Sign Out: ? Discussed with Emergency Department Provider Advanced Imaging: Advanced imaging has been ordered. Results pending. Metrics: Last Known Well: 10/01/2024 01:00:00 Dispatch Time: 10/01/2024 06:32:08 Arrival Time: 10/01/2024 06:27:00 Initial Response Time: 10/01/2024 06:34:41Symptoms: slurred speech, right sided weakness, facial droop. Initial patient interaction: 10/01/2024 06:58:34 NIHSS Assessment Completed: 10/01/2024 07:05:42Patient is not a candidate for Thrombolytic. Thrombolytic Medical Decision: 10/01/2024 07:05:43Patient was not deemed candidate for Thrombolytic because of following reasons: LKW outside 4.5 hr window. . I personally Reviewed the CT Head and it Showed no acute findings Primary Provider Notified of Diagnostic Impression and Management Plan on: 10/01/2024 07:12:17 History of Present Illness:Patient is a 39 year old Female. Patient was brought by EMS for symptoms of slurred speech, right sided weakness, facial droop. This patient is a 39-year-old female with a past medical history of hypertension and von Willebrand disease presenting for evaluation of slurred speech and right -sided weakness. Patient states that she went to bed normal at approximately 1 AM and when she woke in the morning to speak to her son she noticed that she had difficulty speaking. Last known well initially thought to be 6 AM, however this was when she became aware of her symptoms when talking to her son so her last known well is 1 AM. To her knowledge she has never had any major bleeding events related to her von Willebrand disease. She was diagnosed as a teenager due to easy bruising and heavy menstrual cycles. Past Medical History: ?Hypertension Other PMH:? Von Willebrand disease Medications: No Anticoagulant use? No Antiplatelet use Reviewed EMR for current medications Allergies:? Reviewed Social History: Drug Use: No Family History: There is no family history of premature cerebrovascular disease pertinent to this consultation ROS : 14 Points Review of Systems was performed and was negative except mentioned in HPI. Past Surgical History: There Is No Surgical History Contributory To Today?s Visit Examination: BP(151/88),?Pulse(83), 1A: Level of Consciousness - Alert; keenly responsive?+ 0 1B: Ask Month and Age - Both Questions Right?+ 0 1C: Blink Eyes & Squeeze Hands - Performs Both Tasks?+ 0 2: Test Horizontal Extraocular Movements - Normal?+ 0 3: Test Visual [place] - No Visual Loss?+ 0 4: Test Facial Palsy (Use Grimace if Obtunded) - Minor paralysis (flat nasolabial fold, smile asymmetry)?+ 1 5A: Test Left Arm Motor Drift - No Drift for 10 Seconds?+ 0 5B: Test Right Arm Motor Drift - Drift, hits bed?+ 2 6A: Test Left Leg Motor Drift - No Drift for 5 Seconds?+ 0 6B: Test Right Leg Motor Drift - Drift, but doesn't hit bed?+ 1 7: Test Limb Ataxia (FNF/Heel-Shaw) - No Ataxia?+ 0 8: Test Sensation - Mild-Moderate Loss: Less Sharp/More Dull?+ 1 9: Test Language/Aphasia - Normal; No aphasia?+ 0 10: Test Dysarthria - Mild-Moderate Dysarthria: Slurring but can be understood?+ 1 11: Test Extinction/Inattention - No abnormality?+ 0 NIHSS Score:?6 Pre-Morbid Modified W[place]all Scale:0 Points = No symptoms at all Spoke with :?er provider This consult was conducted in real time using interactive audio and video technology. Patient was informed of the technology being used for this visit and agreed to proceed. Patient located in hospital and provider located at home/office setting. Patient is being evaluated for possible acute neurologic impairment and high probability of imminent or life-threatening deterioration. I spent total of 35 minutes providing care to this patient, including time for face to face visit via telemedicine, review of medical records, imaging studies and discussion of findings with providers, the patient and/or family. Dr Pablo Mcwilliams [facility] For Inpatient follow-up with [facility] physician please call [facility] at . As we are not an outpatient service for any post hospital discharge needs please contact the hospital for assistance. If you have any questions for the [facility] physicians or need to reconsult for clinical or diagnostic changes please contact us via [facility] at .
[2024-10-01 07:13] LABS: Alanine Aminotransferase 10 U/L (10-49); Albumin/Globulin Ratio 1.5 (1.2-2.2); Alcohol, Blood Medical < 3.0 mg/dL (0-10.0); Alkaline Phosphatase 87 U/L (46-116); Anion Gap 4 (7-16); Aspartate Amino Transferase 10 U/L (0-34); BUN/Creatinine Ratio 16 Ratio (12-20); Bilirubin,Total 0.2 mg/dL (0.3-1.2); Blood Urea Nitrogen 16 mg/dL (9-23); Carbon Dioxide 25.6 mMol/L (20.0-31.0); Chloride 107 mMol/L (98-107); Globulin 2.7 gm/dL (2.3-3.5); Glucose 100 mg/dL (74-106); Magnesium 1.9 mg/dL (1.6-2.6); Osmolality,Calculated 275 (275-295); Potassium 3.9 mMol/L (3.4-5.1); Sodium 137 mMol/L (136-145); Total Protein 6.7 gm/dL (5.7-8.2); Troponin I < 0.020 ng/mL (0.0-0.045); eGFR > 60 See Note
[2024-10-01 07:27] LABS: HCG Titer if Positive Negative
--- NOTE | 2024-10-01 07:48 | PC.NURSE ---
pt arrived around 0627. P t evaluated by ED . PT then taken to CT With tele neuro. IV placed in CT. Wile in CT pts speach was going in and out of normal. IV to L FA did infiltrate at the end of contrast injection. Pt brought back tO WAS ASSESED BY [facility]O . l ARM ELEVATED WARM COMPRESS APPLIED.
--- NOTE | 2024-10-01 07:56 | ECHO_ITS ---
Transthoracic Echo Report Ht (in): 65 Wt (lb): 230 Exam Location: Echo Lab Status: Emergency Aircraft Log Clerk: Marie Rodríguez Indications: Procedure Performed: BP: 137 / 86 HR: 74 Technical Quality: Technically difficult study MEASUREMENTS (Male / Female) Normal Values 2D ECHO LV Diastolic Diameter PLAX 5.1 cm 4.2 - 5.9 / 3.9 - 5.3 cm LV Systolic Diameter PLAX 3.0 cm IVS Diastolic Thickness 0.9 cm 0.6 - 1.0 / 0.6 - 0.9 cm LVPW Diastolic Thickness 1.2 cm 0.6 - 1.0 / 0.6 - 0.9 cm LV Relative Wall Thickness 0.4 LVOT Diameter 2.1 cm Aortic Root Diameter 3.3 cm LA Systolic Diameter LX 3.1 cm 3.0 - 4.0 / 2.7 - 3.8 cm LA Volume Index 18.8 cm?/m? 16 - 28 cm?/m? DOPPLER AV Peak Velocity 128.0 cm/s AV Peak Gradient 6.6 mmHg AV Mean Gradient 4.0 mmHg AV Velocity Time Integral 29.2 cm LVOT Peak Velocity 107.0 cm/s LVOT Peak Gradient 4.6 mmHg LVOT Velocity Time Integral 28.5 cm LVOT Cardiac Index 3266.1 cm?/min?m? AV Area Cont Eq vti 3.4 cm? AV Area Cont Eq pk 2.9 cm? MV Area PHT 3.7 cm? Mitral E Point Velocity 75.7 cm/s Mitral A Point Velocity 79.1 cm/s Mitral E to A Ratio 1.0 LV E' Lateral Velocity 10.8 cm/s Mitral E to LV E' Lateral Ratio 7.0 LV E' Septal Velocity 8.9 cm/s Mitral E to LV E' Septal Ratio 8.5 PV Peak Velocity 95.0 cm/s PV Peak Gradient 3.6 mmHg FINDINGS Left Ventricle Normal left ventricular size, wall thickness, systolic function with no obvious regional wall motion abnormalities. Normal left ventricular diastolic filling pattern for age. The ejection fraction is visually estimated at 60-65%. Right Ventricle The right ventricle is normal in size and systolic function. Left Atrium The left atrium is normal by two-dimensional, color flow and Doppler imaging with no structural abnormalities, no thrombus formation present. Right Atrium The right atrium is normal by two-dimensional imaging, color flow and Doppler imaging with no structural abnormalities, no thrombus formation present. Atrial Septum The interatrial septum appears normal with no evidence of a shunt. Aorta The aorta is normal by two-dimensional, color flow and Doppler interrogation. Mitral Valve The mitral valve is normal by two-dimensional, color flow and Doppler interrogation. There is no significant mitral valve regurgitation, stenosis or prolapse. Aortic Valve The aortic valve is trileaflet and normal by two-dimensional, color flow and Doppler interrogation. There is no significant aortic valve regurgitation. Tricuspid Valve The tricuspid valve is normal by two-dimensional, color flow and Doppler interrogation. There is mild tricuspid valve regurgitation. Pulmonic Valve The pulmonic valve is not well visualized. There is no significant pulmonic valve regurgitation. Vessels The pulmonary artery appears normal. The inferior vena cava pulmonary and hepatic veins appear normal. Pericardium The pericardium is normal by two-dimensional imaging. There is no significant pericardial effusion. CONCLUSIONS Indication: bubble study Negative bubble study Normal LV size and function. Estimated EF 60-65% RV is normal in size and systolic function. Mild TR. Aurelia Lay (Electronically Signed) Final Date: 03 October 2024 07:17
[2024-10-01 08:06] LABS: B-Type Natriuretic Peptide 24 pg/mL (0-100)
[2024-10-01] MEDS: ATORVASTATIN CALCIUM 20 MG TABLET 80 MG PO (08:55)
[2024-10-01] MEDS: ASPIRIN EC 81 MG TABEC PO (08:55)
[2024-10-01] MEDS: PANTOPRAZOLE 40 MG TABLET PO (08:55)
[2024-10-01] MEDS: RINGERS LACTATED 1000 ML 1,000 ML 75 ML IV ×2 (08:55→21:19)
[2024-10-01 09:39] LABS: Collection Type, Urine Clean Catch; Squamous Epithelial Cell,Urine 0 /hpf (0-5); WBC,Urine 0 /hpf (0-5)
[2024-10-01 09:48] LABS: Bilirubin,Urine Negative (Negative); Blood,Urine Negative (Negative); Clarity,Urine Clear (Clear/Hazy); Color,Urine Lt-Yellow (Lt Yel-Yel); Glucose, Urine Negative (Negative); Ketones,Urine Negative (Negative); Leukocyte Esterase,Urine Negative (Negative); Nitrite,Urine Negative (Negative); PH,Urine 6.5 (5.0-7.0); Protein,Urine Negative (Neg - Trace); RBC,Urine < 1 /hpf (0-3); Urobilinogen,Urine Negative mg/dL (0.0-1.0)
[2024-10-01 09:51] LABS: Specific Gravity,Urine 1.015 (1.001-1.035)
[2024-10-01 09:52] LABS: Amphetamine/Methamp Scrn,U Positive (Negative); Barbiturate Screen,Urine Negative (Negative); Benzodiazepines Screen,Urine Negative (Negative); Benzoylecgonine Screen, Ur Negative (Negative); Fentanyl Screen,Urine Negative (Negative); Opiate Screen,Urine Negative (Negative); THC Screen,Urine Positive (Negative)
--- NOTE | 2024-10-01 11:44 | ESHP_ITS ---
Documentation for date of: 10/01/24 [facility] History of Present Illness History of present illness: The patient is a 34-year-old female with a past medical history of von Willebrand disease, HTN who presented to the ED with acute onset right-sided weakness, numbness, and slurred speech. Symptoms began earlier in the morning while she was getting ready. The patient also reported generalized weakness, leg cramping, and diffuse body aches. patient denied similaar symptoms in a past, denied any nausea, vomiting, disuria, any recent traumatic stress event in her life. She stated that she has a long hx of anxiety, but currently in not on any medications. Upon presentation, she was hemodynamically stable but continued to exhibit right-sided neurological deficits and slurred speech. A stroke alert was initiated. Teleneurology was consulted. Although the patient was outside the tPA window. Imaging: CT Head: Negative for acute hemorrhage, mass, or midline shift CTA Head/Neck: No evidence of large vessel occlusion Labs: Mild leukocytosis (WBC 11.8) ? possibly reactive,Anemia (Hgb 11.3, Hct 34.6),Positive urine toxicology for amphetamines and marijuana Based on teleneurology recommendations, the patient was admitted for further workup and management of a suspected cerebrovascular event. PMH: As above PSH c-cection, colecystectomy meds: lisinopril allegies:Niacin Social: meth and marihuana, lives with sister has 2 kids. Review of Systems Review of Systems Narrative Review of Systems: Narrative Review of Systems: GENERAL: Denies fevers/chills or diaphoresis. HEENT: Denies headache, Denies visual/hearing changes CARDIO: Denies chest pain PULM: Denies SOB GI: Denies abdominal pain, nausea, vomiting, diarrhea, or constipation MSK/EXT/SKIN: Denies joint/skeletal/muscle pain The rest of review of system is otherwise negative except what is mentioned above Exam Vital Signs Temp Pulse Resp BP Pulse Ox O2 Del Method 98 F 72 18 151/82 H 100 Room Air 10/01/24 06:30 10/01/24 11:31 10/01/24 11:31 10/01/24 11:31 10/01/24 11:31 10/01/24 11:31 Narrative Exam GENERAL: no acute distress, AAO x3, well nourished. HEENT: Head AT/ NC. Mucous membranes moist. PERRL. NECK: Supple, no lymphadenopathy, no carotid bruits. CARDIOVASCULAR: RRR. Normal S1/S2, No m/r/g. No pitting edema of bilateral LEs. RESPIRATORY: CTAB. No wheezing, rhonchi, crackles. GASTROINTESTINAL: Abdomen soft, non tender no palpable masses. Bowel sounds present in all 4 quadrants. MUSCULOSKELETAL:? No cyanosis or edema, no visible joint swelling. NEUROLOGICAL:slured speach, CNII-XII intact, sensation intact, muscle strength on LUE and LLE preserved, significantly decreased, 3/5 on RUE and RLE. PSYCHIATRIC: Awake and alert, not agitated, normal mood and affect. INTEGUMENTARY: No obvious rashes, no jaundice, normal turgor. Results: Labs 10/02/24 05:56 10/02/24 05:56 Labs: Short CBC 10/01/24 Range/Units 06:30 WBC 11.9 H (3.6-11.0) Thou/mm3 Hgb 11.3 L (12.0-16.0) g/dL Hct 34.6 L (36.0-46.0) % Plt Count 245 (140-440) Thou/mm3 BMP 10/01/24 06:30 Sodium 137 Potassium 3.9 Chloride 107 Carbon Dioxide 25.6 BUN 16 Creatinine 1.0 Glucose 100 Calcium 9.0 Cardiac Enzymes 10/01/24 Range/Units 06:30 Troponin I < 0.020 (0.0-0.045) ng/mL Liver Function 10/01/24 Range/Units 06:30 Total Bilirubin 0.2 L (0.3-1.2) mg/dL AST 10 (0-34) U/L ALT 10 (10-49) U/L Alkaline Phosphatase 87 (46-116) U/L Albumin 4.0 (3.5-5.0) gm/dL Urine 10/01/24 Range/Units 08:45 Urine Color Lt-Yellow (Lt Yel-Yel) Urine Clarity Clear (Clear/Hazy) Urine pH 6.5 (5.0-7.0) Ur Specific [place] 1.015 (1.001-1.035) Urine Protein Negative (Neg - Trace) Urine Glucose (UA) Negative (Negative) Quality Measures Quality Measures stroke Suspected type of Stroke: Unknown at this time Last known well (date): 10/01/24 Last known well (time): 06:00 Tenecteplase given: Reason(s) Tenecteplase not given: Outside the time window not given Rehab services: PT evaluation ordered VTE Prophylaxis: mechanical Antithrombotic by day 2:: not indicated (describe) Statin ordered: <75 y/o high intensity dose Anticoagulation ordered for A-fib or flutter (current or hx): not indicated Medications Home Medications and Allergies Home Medications ?Medication ?Instructions ?Recorded ?Confirmed ?Type labetalol 200 mg tablet 200 mg PO TID 04/29/1910/01 History ketoconazole 2 % topical cream 1 applic topical BID 10/01/24 History lisinopril 40 mg tablet 40 mg PO QDAY 10/01/2410/01 History triamcinolone acetonide 0.1 % 1 applic topical BID 10/01/24 History topical cream Allergies Allergy/AdvReac Type Severity Reaction Status Date / Time niacin Allergy Severe Anaphylaxis Verified 10/01/24 19:59 vancomycin Allergy Intermediate Hives Verified 10/01/24 20:00 Bee Stings Allergy Severe Anaphylaxis Uncoded 10/01/24 19:59 Visit Medications Acetaminophen (Acetaminophen 325 Mg Tablet) 650 mg PO Q6H PRN PRN Reason: PAIN OR FEVER > 101 Stop: 10/31/24 07:52 Aspirin (Aspirin Ec 81 Mg Tabec) 81 mg PO QDAY [facility] Stop: 10/31/24 08:59 Last Admin: 10/01/24 08:55 Dose: 81 mg Atorvastatin Calcium (Atorvastatin Calcium 20 Mg Tablet) 80 mg PO HS [facility] Stop: 10/31/24 08:59 Last Admin: 10/01/24 08:55 Dose: 80 mg Lactated Ringer's (Lactated Ringers) 1,000 mls @ 75 mls/hr IV .[id number] [facility] Stop: 10/31/24 07:59 Last Admin: 10/01/24 08:55 Dose: 75 mls/hr Ondansetron HCl (Ondansetron Inj 2 Mg/Ml Inj 2 Ml) 4 mg IV Q4HR PRN PRN Reason: NAUSEA OR VOMITING Stop: 10/31/24 06:28 Pantoprazole Sodium (Pantoprazole 40 Mg Tablet) 40 mg PO QDAY JONI Stop: 10/31/24 08:59 Last Admin: 10/01/24 08:55 Dose: 40 mg Sennosides (Senna Tablet) 1 tab PO QDAY [facility]; Protocol Stop: 10/31/24 08:59 Last Admin: 10/01/24 08:55 Dose: Not Given Assessment & Plan Plan 34-year-old female with past medical history of von Willebrand disease, hypertension was admitted for CVA workup. #Left-sided weakness #Dysarthria #Slurred speech #Ischemic stroke #Acute infarct left caudate nucleus and left basal ganglia. Came in with chief complaints of left-sided weakness, dysarthria, slurred speech, that started suddenly, Patient is in the high risk given the history of von Willebrand's syndrome, as well as history of hypertension CT Head: Negative for acute hemorrhage, mass, or midline shift CTA Head/Neck: No evidence of large vessel occlusion MRI revealed acute infarct left caudate nucleus and left basal ganglia as above. Activate stroke protocol order set NIHSS score 6 Patient is not a candidate for Thrombolytic therapy,LWK above 4.5 hours. -Admit to telemetry -Neurochecks every 4 -Seizure precaution -Head of bed elevation 30 degree -N.p.o. for now -Bedside swallow evaluation -Aspirin 81 mg daily -Lipitor LEAD SOFTWARE TEST ENGINEER will start mg daily -Tylenol as needed to avoid hyperthermia -Euglycemia state -Hemoglobin A1c ordered, follow-up with results -Echo ordered -Dr Daniels was consulted, recommendations appreciated -Physical therapy evaluation. -DVT prophylaxis with SCDs due to risk of bleeding -Control risk factors such as HTN, HLD -Continue to closely monitor and follow-up with results #Hx of HTN home meds are lisinopril holding( permissive HTN 1st 24 hour) #Hx of vW syndrom #Hx of 1 spontanous - Leyden factor V, cardiolipin, AVRIL, protein C, S was ordered - Will follow-up with results Disposition:tele DVT prophylaxis: SCDs GI prophylaxis: PPI Diet: NPO, speach eval, nurse swallow, if passes ok for PO meds Lines: PIV CODE STATUS:Full code Patient care was discussed with attending physician Dr. Anabella Lorenzana MD PGY-2 I have carefully reviewed this document. Due to imperfections in the voice software, there could be grammatical errors including phonetic/typographic errors. This in no way compromises the medical care the patient is receiving Attending Provider Attestation/Addendum Evie Abarca DO, attest that I was physically present for the dodson portions of the service and evaluated the patient with the resident and I reviewed and discussed the case with the resident and agree with the resident's findings and plans of care as documented above Patient is a 39-year-old female with past medical have reported von Willebrand's disease and hypertension who presented to the ED with sudden onset of right- sided weakness, inability to walk and slurred speech. She states that her daughter had noticed that at around 5 in the morning and was subsequently brought to the ED due to concern for stroke. Stroke alert was called from the ED and teleneurology was consulted. Patient continues to have some right upper extremity weakness with limited active range of motion. She is only able to flex her right upper extremity to about 30 degrees and unable to close her right hand upon being instructed to venue coordinator. However, sister at bedside states that patient had a prior injury of her right hand. Patient has 2+ out of 5 muscle strength in her right lower extremity. She has 4+ out of 5 muscle strength in her left upper and left lower extremity as well. No facial droop noted. She is noted to have difficulty with [id number] test on her right side. Extraocular muscles and visual boswell are intact. CT head was done in the ED showing no acute findings. CTA head and neck also shows no evidence of large vessel occlusion. Will admit patient to telemetry for further workup and medical management of acute CVA. Will start patient on aspirin and statin. Will order MRI echocardiogram. Will follow-up with neurology recommendations. Will also order a hypercoagulable workup. Patient has reported von Willebrand's disease, but it is unclear if she has a confirmed diagnosis as per chart review. Patient states that she had a blood draw where she had difficulty controlling the bleeding after the blood draw.
--- NOTE | 2024-10-01 17:24 | PD.NEUROCONS ---
History of Present Illness Data of Consult Requesting Physician: Evie Kyle DO Primary Care Provider: Physician No Primary/Family Consult Narrative cc:: cc: Evie Kyle, DO Meds Home Medications and Allergies Home Medications ?Medication ?Instructions ?Recorded ?Confirmed ?Type labetalol 200 mg tablet 200 mg PO TID 04/29/19 05/07/19 History Allergies Allergy/AdvReac Type Severity Reaction Status Date / Time niacin Allergy Severe Anaphylaxis Verified 07/09/24 17:45 Bee Stings Allergy Severe Anaphylaxis Uncoded 07/09/24 17:45 Exam - Neurology Vital Signs Temp Pulse Resp BP Pulse Ox O2 Del Method 98.3 F 68 18 150/78 H 99 Room Air 10/01/24 14:54 10/01/24 15:35 10/01/24 15:35 10/01/24 14:54 10/01/24 14:54 10/01/24 14:54 Results Labs 10/01/24 06:30 10/01/24 06:30 Labs: Short CBC 10/01/24 Range/Units 06:30 WBC 11.9 H (3.6-11.0) Thou/mm3 Hgb 11.3 L (12.0-16.0) g/dL Hct 34.6 L (36.0-46.0) % Plt Count 245 (140-440) Thou/mm3 BMP 10/01/24 06:30 Sodium 137 Potassium 3.9 Chloride 107 Carbon Dioxide 25.6 BUN 16 Creatinine 1.0 Glucose 100 Calcium 9.0 Cardiac Enzymes 10/01/24 Range/Units 06:30 Troponin I < 0.020 (0.0-0.045) ng/mL Liver Function 10/01/24 Range/Units 06:30 Total Bilirubin 0.2 L (0.3-1.2) mg/dL AST 10 (0-34) U/L ALT 10 (10-49) U/L Alkaline Phosphatase 87 (46-116) U/L Albumin 4.0 (3.5-5.0) gm/dL Urine 10/01/24 Range/Units 08:45 Urine Color Lt-Yellow (Lt Yel-Yel) Urine Clarity Clear (Clear/Hazy) Urine pH 6.5 (5.0-7.0) Ur Specific [place] 1.015 (1.001-1.035) Urine Protein Negative (Neg - Trace) Urine Glucose (UA) Negative (Negative)
[2024-10-01] MEDS: ACETAMINOPHEN 325 MG TABLET 650 MG PO (21:18)
--- NOTE | 2024-10-01 22:14 | PC.NURSE ---
seen and examined by Dr. Carcamo and Dr. Tessa moran NIH score=5. Spouse at bedside.
[2024-10-02] VITALS (10 sets, daily range): BP systolic 131–174; BP diastolic 81–97; PULSE 64–92; RESP 13–97; TEMP 36–36.2; O2SAT 98–100
[2024-10-02 06:51] LABS: Basophils # (Auto) 0.1 Thou/mm3 (0.0-0.2); Basophils % (Auto) 1 % (0-2.5); Eosinophils # (Auto) 0.2 Thou/mm3 (0.0-0.5); Eosinophils % (Auto) 2 % (0-10); Hematocrit 34.2 % (36.0-46.0); Hemoglobin 11.3 g/dL (12.0-16.0); Immature Granulocytes % (Auto) 0 % (0-0); Immature Granulocytes Auto 0.02 Thou/mm3 (0.00-0.00); Lymphocytes # (Auto) 5.1 Thou/mm3 (1.0-4.8); Lymphocytes % (Auto) 57 % (10-50); Mean Corpuscular Hemoglobin 27.4 pg (25.0-35.0); Mean Corpuscular Volume 83 fL (80-100); Monocytes # (Auto) 0.6 Thou/mm3 (0.0-0.8); Monocytes % (Auto) 6 % (0-12); Neutrophils % (Auto) 33 % (37-80); Nucleated Red Blood Cell % 0 /100 WBC (0); Platelet Count 241 Thou/mm3 (140-440); RDW Standard Deviation 44.9 fL (36.4-46.3); Red Blood Count 4.13 Miln/mm3 (4.00-5.20)
[2024-10-02 06:57] LABS: Alanine Aminotransferase < 7 U/L (10-49); Albumin, Serum 3.7 gm/dL (3.5-5.0); Albumin/Globulin Ratio 1.4 (1.2-2.2); Alkaline Phosphatase 81 U/L (46-116); Anion Gap 6 (7-16); Aspartate Amino Transferase < 8 U/L (0-34); BUN/Creatinine Ratio 16 Ratio (12-20); Bilirubin,Total 0.2 mg/dL (0.3-1.2); Blood Urea Nitrogen 13 mg/dL (9-23); Calcium 8.8 mg/dL (8.3-10.6); Cardiac Risk Estimate 4.3 RATIO (3.7-5.6); Chloride 111 mMol/L (98-107); Cholesterol 143 mg/dL (132-200); Creatinine (Component) 0.8 mg/dL (0.6-1.3); Estimated Creatinine Clearance 117.5 mL/min (>60); Globulin 2.6 gm/dL (2.3-3.5); Glucose 108 mg/dL (74-106); HDL Cholesterol 33 mg/dL (40-60); LDL Cholesterol,Calculated 84 mg/dL (0-130); Magnesium 1.7 mg/dL (1.6-2.6); Osmolality,Calculated 286 (275-295); Phosphorous 4.2 mg/dL (2.4-5.1); Potassium 4.1 mMol/L (3.4-5.1); Sodium 143 mMol/L (136-145); Thyroid Stimulating Hormone 2.79 uIU/mL (0.55-4.78); Total Protein 6.3 gm/dL (5.7-8.2); Triglycerides 128 mg/dL (30-150); eGFR > 60 See Note
[2024-10-02 07:24] LABS: Glucose Estimated Average 111 mg/dL (80-131); Hemoglobin A1C 5.5 % Hgb (4.8-6.0)
[2024-10-02] MEDS: SENNA TABLET 1 TAB PO (08:21)
[2024-10-02] MEDS: CLOPIDOGREL BISULFATE 75 MG TABLET PO (08:21)
[2024-10-02] MEDS: PANTOPRAZOLE 40 MG TABLET PO (08:21)
[2024-10-02] MEDS: ASPIRIN EC 81 MG TABEC PO (08:21)
--- NOTE | 2024-10-02 09:25 | PC.SS ---
HISTORICAL ARCHEOLOGIST conducted bedside contact with the patient conduct initial assessment and to discuss discharge planning.? Patient confirmed demographic information.? Patient resides with partner, Ruddy Manzano.? Patient does not utilize any form of DME to assist with ambulation.? Patient does not utilize home oxygen.? Patient describes the ability to complete ADL?s independently.? Patient identified sister, Elizabeth Jerome ; as surrogate medical decision maker.? Patient utilizes [facility]; for PCP services.? Patient does not participate with dialysis.? Patient does not possess history of diabetes. ?Plan is for the patient to return home at the time of discharge.? Patient?s sister will provide transportation on behalf of the patient. ?No further discharge needs identified by the patient.? No further intervention required at this time, social media marketer will be available to address any further concerns.? Next of Kin: Elizabeth Jerome D/C Plan: Home
--- NOTE | 2024-10-02 10:19 | EKG_ITS ---
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
[2024-10-02] MEDS: RINGERS LACTATED 1000 ML 1,000 ML 75 ML IV (10:59)
[2024-10-02] MEDS: Lisinopril 20 MG TABLET 40 MG PO (12:22)
--- NOTE | 2024-10-02 14:17 | PD.RESPRO ---
Documentation for date of: 10/02/24 Subjective Subjective Interval history: No overnight events. Patient seen examined at bedside, resting comfortably. Reports significant improvement in symptoms, denies fevers, chills, chest pain, shortness of breath, nausea, vomiting. Strength intact bilaterally, speech improved almost to baseline. Echo taken, follow-up reviewed. Pending neuro recs. Exam Vital Signs Temp Pulse Resp BP Pulse Ox O2 Del Method 97.0 F 86 19 174/97 H 99 Room Air 10/02/24 12:00 10/02/24 12:22 10/02/24 12:00 10/02/24 12:22 10/02/24 12:00 10/02/24 12:00 Narrative Exam GENERAL: no acute distress, AAO x3, well nourished. Obese. HEENT: Head AT/ NC. Mucous membranes moist. PERRL. NECK: Supple, no lymphadenopathy, no carotid bruits. CARDIOVASCULAR: RRR. Normal S1/S2, No m/r/g. No pitting edema of bilateral LEs. RESPIRATORY: CTAB. No wheezing, rhonchi, crackles. GASTROINTESTINAL: Abdomen soft, non tender no palpable masses. MUSCULOSKELETAL:? No cyanosis or edema, no visible joint swelling. NEUROLOGICAL: CNII-XII intact, sensation intact, muscle strength 5/5 on BUE and BLE. Slight slurring of speech, improved. PSYCHIATRIC: Awake and alert, not agitated, normal mood and affect. INTEGUMENTARY: No obvious rashes, no jaundice, normal turgor. Objective Labs 10/03/24 08:19 10/02/24 05:56 Labs: Laboratory Results - last 24 hr 10/02/24 05:56 WBC 9.0 RBC 4.13 Hgb 11.3 L Hct 34.2 L MCV 83 MCH 27.4 MCHC 33.0 RDW Std Deviation 44.9 Plt Count 241 Neut % (Auto) 33 L Lymph % (Auto) 57 H [place] % (Auto) 6 Eos % (Auto) 2 Baso % (Auto) 1 Neut # (Auto) 3.0 Lymph # (Auto) 5.1 H [place] # (Auto) 0.6 Eos # (Auto) 0.2 Baso # (Auto) 0.1 Immature Gran # (Auto) 0.02 H Absolute Nucleated RBC 0.00 Immature Gran % 0 Nucleated RBC % 0 Sodium 143 Potassium 4.1 Chloride 111 H Carbon Dioxide 26.0 Anion Gap 6 L BUN 13 Creatinine 0.8 Estim Creat Clear Calc 117.5 eGFR > 60 BUN/Creatinine Ratio [address] Glu mg/dL 111 Hemoglobin A1c 5.5 Calculated Osmolality 286 Calcium 8.8 Corrected Calcium 9.0 Phosphorus 4.2 Magnesium 1.7 Total Bilirubin 0.2 L AST < 8 ALT < 7 L Alkaline Phosphatase 81 Total Protein 6.3 Albumin 3.7 Globulin 2.6 Albumin/Globulin Ratio 1.4 Triglycerides 128 Cholesterol 143 LDL Cholesterol, Calc 84 HDL Cholesterol 33 L Cholesterol/HDL Ratio 4.3 TSH 2.79 Quality Measures Quality Measures stroke Suspected type of Stroke: Unknown at this time Last known well (date): 09/30/24 Last known well (time): 23:00 Tenecteplase given: Reason(s) Tenecteplase not given: Outside the time window not given Rehab services: PT evaluation ordered and Speech Language Pathology eval ordered VTE Prophylaxis: mechanical Antithrombotic by day 2:: not indicated (describe) (Out of window) Statin ordered: <75 y/o high intensity dose Anticoagulation ordered for A-fib or flutter (current or hx): not indicated Assessment & Plan Assessment Current Active Medications: Generic Name Dose Route Start Last Admin Trade Name Freq PRN Reason Stop Dose Admin Acetaminophen 650 mg 10/01/24 07:53 10/01/24 21:18 Acetaminophen 325 Mg Tablet PO 10/31/24 07:52 650 mg Q6H PRN Administration PAIN OR FEVER > 101 Aspirin 81 mg 10/01/24 09:00 10/02/24 08:21 Aspirin Ec 81 Mg Tabec PO 10/31/24 08:59 81 mg QDAY JONI Administration Atorvastatin Calcium 80 mg 10/01/24 09:00 10/01/24 21:16 Atorvastatin Calcium 20 Mg Tablet PO 10/31/24 08:59 Not Given HS JONI Clopidogrel Bisulfate 75 mg 10/02/24 09:00 10/02/24 08:21 Clopidogrel Bisulfate 75 Mg Tablet PO 11/01/24 08:59 75 mg QDAY JONI Administration Lisinopril 40 mg 10/02/24 12:15 10/02/24 12:22 Lisinopril 20 Mg Tablet PO 11/01/24 12:14 40 mg QDAY JONI Administration Ondansetron HCl 4 mg 10/01/24 06:29 Ondansetron Inj 2 Mg/Ml Inj 2 Ml IV 10/31/24 06:28 Q4HR PRN NAUSEA OR VOMITING Pantoprazole Sodium 40 mg 10/01/24 09:00 10/02/24 08:21 Pantoprazole 40 Mg Tablet PO 10/31/24 08:59 40 mg QDAY JONI Administration Sennosides 1 tab 10/01/24 09:00 10/02/24 08:21 Senna Tablet PO 10/31/24 08:59 1 tab QDAY JONI Administration Protocol Plan 34-year-old female with past medical history of von Willebrand disease, hypertension was admitted for CVA workup. #Ischemic stroke #Acute infarct left caudate nucleus and left basal ganglia. Came in with chief complaints of left-sided weakness, dysarthria, slurred speech, that started suddenly. CT Head: Negative for acute hemorrhage, mass, or midline shift CTA Head/Neck: No evidence of large vessel occlusion. MRI revealed acute infarct left caudate nucleus and left basal ganglia as above. Activate stroke protocol order set NIHSS score 6 Patient is not a candidate for Thrombolytic therapy,LWK above 4.5 hours. Patient had significant improvement in symptoms, only has mildly slowed speech on further evaluation. Hemoglobin A1c 5.5%. Patient knowledges history of palpitations. U-Tox positive for meth. -Admit to telemetry -Neurochecks every 4 hours -Seizure precaution -Head of bed elevation 30 degree -Aspirin 81 mg daily -Lipitor 80 mg daily -Plavix 75 mg daily -Tylenol as needed to avoid hyperthermia -Euglycemia state -Echo ordered -Dr Daniels was consulted, recommendations appreciated -DVT prophylaxis with SCDs due to risk of bleeding -Control risk factors such as HTN, HLD -Continue to closely monitor and follow-up with results - Outpatient Holter monitor #Hx of HTN home meds are lisinopril -Resume home lisinopril 40 mg p.o. daily #Hx of vW syndrome #Hx of 1 spontanous Patient reports history of von Willebrand factor deficiency, however unclear if ever been formally diagnosed. - Leyden factor V, cardiolipin, AVRIL, protein C, S was ordered - Will follow-up with results DVT prophylaxis: SCDs GI prophylaxis: PPI Diet: Cardiac Lines: PIV CODE STATUS:Full code Patient care was discussed with attending physician Dr. Kyle. Gab Westfall MD PGY? Attending Provider Attestation/Addendum I, Evie Kyle, DO, attest that I was physically present for the dodson portions of the service and evaluated the patient with the resident and I reviewed and discussed the case with the resident and agree with the resident's findings and plans of care as documented above Patient seen and evaluated this AM. at bedside who states that the patient was able to independently walk to the bathroom without issue. MS appears to have recovered in right UE and LE. Upon further questioning, patient denies any drug use despite UDS testing positive for meth. Pending echocardiogram. MRi results were discussed with patient and her at bedside. Advised to f/u outpatient regarding hypercoagulable workup. Anticipate DC within next 24h. F/u with neurology recommendations.
[2024-10-02] MEDS: ONDANSETRON INJ 2 MG/ML INJ 2 ML 4 MG IV (19:41)
[2024-10-03] VITALS: BP 106/71; PULSE 64; PULSE 72; RESP 14; TEMP 36.1; O2SAT 97
--- NOTE | 2024-10-03 00:02 | PD.VPROG1 ---
Telemedicine visit statement This visit was conducted with the use of interactive audio and video telecommunications system that permits real time communication between the patient and the provider. Patient's verbal consent for virtual visit was obtained on 10/03/24 at 0002. Documentation for date of: 10/02/24 Subjective Subjective Interval history: Patient is in telemetry. Continue to have right upper extremity weakness and dysarthria and right facial weakness. Improving since admission but not back to baseline yet. Virtual exam Vital Signs Temp Pulse Resp BP Pulse Ox O2 Del Method 97.0 F 86 19 131/86 H 99 Room Air 10/02/24 19:56 10/02/24 20:00 10/02/24 19:56 10/02/24 19:56 10/02/24 19:56 10/02/24 19:56 Objective Labs 10/02/24 05:56 10/02/24 05:56 Labs: Laboratory Results - last 24 hr 10/02/24 05:56 WBC 9.0 RBC 4.13 Hgb 11.3 L Hct 34.2 L MCV 83 MCH 27.4 MCHC 33.0 RDW Std Deviation 44.9 Plt Count 241 Neut % (Auto) 33 L Lymph % (Auto) 57 H [place] % (Auto) 6 Eos % (Auto) 2 Baso % (Auto) 1 Neut # (Auto) 3.0 Lymph # (Auto) 5.1 H [place] # (Auto) 0.6 Eos # (Auto) 0.2 Baso # (Auto) 0.1 Immature Gran # (Auto) 0.02 H Absolute Nucleated RBC 0.00 Immature Gran % 0 Nucleated RBC % 0 Sodium 143 Potassium 4.1 Chloride 111 H Carbon Dioxide 26.0 Anion Gap 6 L BUN 13 Creatinine 0.8 Estim Creat Clear Calc 117.5 eGFR > 60 BUN/Creatinine Ratio 16 [address]ucose [address] Glu mg/dL 111 Hemoglobin A1c 5.5 Calculated Osmolality 286 Calcium 8.8 Corrected Calcium 9.0 Phosphorus 4.2 Magnesium 1.7 Total Bilirubin 0.2 L AST < 8 ALT < 7 L Alkaline Phosphatase 81 Total Protein 6.3 Albumin 3.7 Globulin 2.6 Albumin/Globulin Ratio 1.4 Triglycerides 128 Cholesterol 143 LDL Cholesterol, Calc 84 HDL Cholesterol 33 L Cholesterol/HDL Ratio 4.3 TSH 2.79 Assessment & Plan Problem List (1) Acute CVA (cerebrovascular accident): Status: Acute Assessment and plan: Presenting with right upper extremity and right facial weakness and dysarthria, improving to some extent. MRI brain showed acute infarction involving the left basal ganglia. Follow-up with echocardiogram Continue with aspirin, statin and Plavix Continue with physical therapy and speech therapy (2) Von Willebrand's disease: Status: Chronic Assessment and plan: By history, continue to monitor for any bleeding (3) Hypertension: Status: Chronic Assessment and plan: Actually it is low now
[2024-10-03 04:00] VITALS: BP 118/72; PULSE 73; PULSE 79; RESP 18; TEMP 36.2; O2SAT 98
[2024-10-03 07:45] VITALS: PULSE 73; RESP 18; RESP 96
[2024-10-03] MEDS: ASPIRIN EC 81 MG TABEC PO (07:59)
[2024-10-03] MEDS: PANTOPRAZOLE 40 MG TABLET PO (07:59)
[2024-10-03 08:00] VITALS: BP 141/81; PULSE 70; PULSE 78; RESP 18; TEMP 36.2; O2SAT 99
[2024-10-03] MEDS: SENNA TABLET 1 TAB PO (08:00)
[2024-10-03] MEDS: CLOPIDOGREL BISULFATE 75 MG TABLET PO (08:00)
[2024-10-03] MEDS: Lisinopril 20 MG TABLET 40 MG PO (08:00)
[2024-10-03 08:38] LABS: Basophils # (Auto) 0.1 Thou/mm3 (0.0-0.2); Basophils % (Auto) 1 % (0-2.5); Eosinophils # (Auto) 0.3 Thou/mm3 (0.0-0.5); Eosinophils % (Auto) 2 % (0-10); Hemoglobin 11.9 g/dL (12.0-16.0); Immature Granulocytes % (Auto) 0 % (0-0); Immature Granulocytes Auto 0.05 Thou/mm3 (0.00-0.00); Lymphocytes # (Auto) 6.1 Thou/mm3 (1.0-4.8); Lymphocytes % (Auto) 43 % (10-50); Mean Corpuscular HGB Conc 32.2 g/dl (31.0-37.0); Mean Corpuscular Hemoglobin 27.1 pg (25.0-35.0); Mean Corpuscular Volume 84 fL (80-100); Monocytes # (Auto) 0.8 Thou/mm3 (0.0-0.8); Monocytes % (Auto) 5 % (0-12); Neutrophils # (Auto) 6.9 Thou/mm3 (1.8-7.7); Neutrophils % (Auto) 49 % (37-80); Nucleated Red Blood Cell % 0 /100 WBC (0); Platelet Count 300 Thou/mm3 (140-440); RDW Standard Deviation 45.1 fL (36.4-46.3); Red Blood Count 4.39 Miln/mm3 (4.00-5.20); White Blood Count 14.1 Thou/mm3 (3.6-11.0)
[2024-10-03 08:54] LABS: Alanine Aminotransferase 9 U/L (10-49); Albumin, Serum 4.2 gm/dL (3.5-5.0); Albumin/Globulin Ratio 1.5 (1.2-2.2); Alkaline Phosphatase 85 U/L (46-116); Anion Gap 3 (7-16); Aspartate Amino Transferase < 10 U/L (0-34); BUN/Creatinine Ratio 14 Ratio (12-20); Bilirubin,Total 0.2 mg/dL (0.3-1.2); Blood Urea Nitrogen 11 mg/dL (9-23); Calcium 9.1 mg/dL (8.3-10.6); Calcium (Corrected) 9.1 mg/dL (8.5-10.1); Carbon Dioxide 27.6 mMol/L (20.0-31.0); Chloride 106 mMol/L (98-107); Creatinine (Component) 0.8 mg/dL (0.6-1.3); Estimated Creatinine Clearance 117.5 mL/min (>60); Globulin 2.8 gm/dL (2.3-3.5); Glucose 115 mg/dL (74-106); Magnesium 1.6 mg/dL (1.6-2.6); Osmolality,Calculated 274 (275-295); Potassium 3.9 mMol/L (3.4-5.1); Sodium 137 mMol/L (136-145); eGFR > 60 See Note
--- NOTE | 2024-10-03 09:23 | PC.SS ---
rounding note: Patient has been seen by Neuro, PT and speech. Patient ambulated up to 200 feet with PT and speech notes indicate baseline. D/c plan: home. F/u with PCP
[2024-10-03 12:00] VITALS: BP 130/92; PULSE 69; PULSE 73; RESP 17; TEMP 35.9; O2SAT 99
--- NOTE | 2024-10-03 13:29 | ESDS_ITS ---
<Statement entered by Evie Kyle DO - 10/04/24 07:28> I, Evie Kyle DO, attest that I was physically present for the dodson portions of the service and evaluated the patient with the resident and I reviewed and discussed the case with the resident and agree with the resident's findings and plans of care as documented above <Statement entered by Anila Lorenzana MD - 10/03/24 15:03> 34-year-old femalePast Medical History of Von Willebrand diseases,Hypertension was admitted for CVA workup following sudden onset of dysarthria, slurred speech, and left-sided weakness Patient presented with acute neurologic symptoms. Stroke alert was initiated in the ED. Imaging: CT head: No acute hemorrhage, mass, or midline shift CTA head/neck: No large vessel occlusion Patient was outside the tPA window, and therefore tPA was not administered Teleneurology recommended admission for further workup Initiated stroke protocol: Aspirin, Plavix, and high-intensity statin MRI brain revealed acute infarcts in the left caudate nucleus and left basal ganglia In-house neurology evaluated and recommended continuation of dual antiplatelet therapy and high-intensity statin, continue risk Factors controlling such as hypertension, hyperlipidemia, and glucose levels Patient participated in physical therapy with significant improvement in symptoms Today, patient is hemodynamically stable with marked resolution of slurred speech and left-sided weakness Patient is alert, oriented, and expresses readiness for discharge Plan: Discharge home today Continue dual antiplatelet therapy (Aspirin + Plavix) and high-intensity statin Continue home medications as prescribed Follow-up with neurology in 1?2 weeks Follow-up with PCP in 1?2 weeks:s Review pending hypercoagulability labs upon result availability:Extensive hypercoagulability workup was initiated: Factor V Leiden, protein S, AVRIL, cardiolipin antibody panel ? pending result Monitor blood pressure and glucose at home Return to ED if symptoms worsen (e.g., new or worsening speech difficulty, weakness, headache, or confusion) Discharge instructions reviewed in detail. Patient verbalized understanding of the plan, medication changes, and follow-up requirements. Please refer to detailed discharge summary by Dr. Watkins for further information. Planned Discharge Date 10/03/24 DS: Providers Provider Date of admission: 10/01/24 07:54 Primary care physician: Physician No Primary/Family Admitting Provider: Evie Kyle DO Attending Provider on Admission: Evie Kyle DO Consults: 10/01/24 06:29 Consult to Neurology / Tele-Neurology Routine Comment: Consulting Provider: [facility] 10/01/24 07:58 PT [Referral Physical Therapy] Stat Comment: Physician Instructions: 10/01/24 08:00 Consult to Neurology / Tele-Neurology Stat Comment: Consulting Provider: Boston Daniels 10/01/24 12:54 Referral Speech Therapy Routine Comment: 10/01/24 20:27 Referral Smoking Cessation Counseling Routine Comment: Smoking Cessation Education Needed 10/01/24 20:54 Referral Smoking Cessation Counseling Routine Comment: Smoking Cessation Education Needed Attending Provider on DC: Evie Kyle DO Discharging Provider: Gab Westfall MD DS: Diagnosis Problem List Completed Was Problem List Reviewed/Reconciled?: Yes Hospital Course Hospital Course Hospital course: 34-year-old female with a past medical history of von Willebrand disease, HTN who presented to the ED with acute onset right-sided weakness, numbness, and slurred speech, admitted for CVA workup. Neurology was consulted. MRI confirmed acute infarct in left caudate nucleus and left basal ganglia, patient out of window for thrombolytic therapy. Patient started on aspirin, Plavix, Lipitor. During hospitalization patient showed significant improvement in symptoms, regained functionality of right upper and lower extremities, speech improved significantly although not fully back to baseline. Patient cleared for discharge from neurology perspective. Patient medically stable and cleared for discharge. Discharge plan: You have been started on the following medications: - Aspirin 81 mg daily - Plavix 75 mg daily for 20 days - Atorvastatin 80 mg daily Please follow-up with your primary physician within 7days. Please follow-up with neurology within 2 weeks. Return to the ED if you develop new or worsening symptoms. Please follow up with Dr. Watkins at the Resident's clinic to establish primary care. you may need to call the office to setup appointment. [facility] [address] [place] [address] Diagnoses: #Ischemic stroke #Acute infarct left caudate nucleus and left basal ganglia. #Hx of HTN #Hx of vW syndrome #Hx of 1 spontanous Patient care was discussed with senior resident Dr. Lorenzana PGY?[address] Kyle. Gab Westfall MD PGY?1 Status at Discharge Overall status at discharge: patient is progressing back to baseline Time Spent with Patient Time attestation: Total time spent providing and/or coordinating discharge services: Time spent: Greater than 30 minutes Quality: Stroke Pt Provided Written Stroke Discharge Instructions: Yes Exam Vital Signs Temp Pulse Resp BP Pulse Ox O2 Del Method 96.7 F L 69 17 130/92 H 99 Room Air 10/03/24 12:00 10/03/24 12:10/03/24 12:10/03/24 12:10/03/24 12:10/03/24 12:00 Narrative Exam GENERAL: no acute distress, AAO x3, well nourished. Obese. HEENT: Head AT/ NC. Mucous membranes moist. PERRL. NECK: Supple, no lymphadenopathy, no carotid bruits. CARDIOVASCULAR: RRR. Normal S1/S2, No m/r/g. No pitting edema of bilateral LEs. RESPIRATORY: CTAB. No wheezing, rhonchi, crackles. GASTROINTESTINAL: Abdomen soft, non tender no palpable masses. MUSCULOSKELETAL:? No cyanosis or edema, no visible joint swelling. NEUROLOGICAL: CNII-XII intact, sensation intact, muscle strength 5/5 on BUE and BLE. Slight slurring of speech, improved. PSYCHIATRIC: Awake and alert, not agitated, normal mood and affect. INTEGUMENTARY: No obvious rashes, no jaundice, normal turgor. Discharge Plan Plan Patient Disposition: HOME (Self Care) Patient condition on transfer: Stable Care Plan Goals: You have been started on the following medications: - Aspirin 81 mg daily - Plavix 75 mg daily for 20 days - Atorvastatin 80 mg daily Please follow-up with your primary physician within 7days. Please follow-up with neurology within 2 weeks. Return to the ED if you develop new or worsening symptoms. Please follow up with Dr. Watkins at the Resident's clinic to establish primary care. you may need to call the office to setup appointment. [facility] [address] [place] [address] Prescriptions/Referrals Prescriptions/Med Rec: New aspirin [Ecotrin Low Strength] 81 mg Tablet,Delayed Release (Dr/Ec) 81 mg PO QDAY 30 Days Qty: 30 0RF clopidogrel 75 mg Tablet 75 mg PO QDAY 20 Days Qty: 20 0RF atorvastatin 80 mg tablet 80 mg PO QPM 30 Days Qty: 30 0RF Continued diphenhydramine HCl [Benadryl Allergy] 25 mg tablet 25 mg PO Q6H Qty: 30 0RF guaifenesin 400 mg tablet 400 mg PO Q6H Qty: 20 0RF lisinopril 40 mg tablet 40 mg PO QDAY Patient Comments: TAKE 1 TABLET BY MOUTH EVERY DAY ketoconazole 2 % cream 1 applic TOPICAL BID Patient Comments: APPLY BY TOPICAL ROUTE TWICE A DAY TO THE AFFECTED AREA(S) Rx Instructions: Left foot triamcinolone acetonide 0.1 % cream 1 applic TOPICAL BID Patient Comments: APPLY THIN COAT TO AFFECTED AREA TWICE A DAY Rx Instructions: Left foot Discontinued labetalol 200 mg Tablet 200 mg PO TID acetaminophen [Tylenol] 325 mg tablet 325 - 650 mg PO Q4H Qty: 30 0RF tamsulosin 0.4 mg capsule 0.4 mg PO QDAY Qty: 14 0RF ibuprofen 600 mg tablet 600 mg PO Q6H PRN (Reason: pain) Qty: 30 0RF Patient Comments: prn hands and shoulder pain Referrals: Gab Westfall MD [Resident] - No Primary/Family,Physician [Primary Care Provider] - Boston Daniels MD [Physician] - Patient/Caregiver Discharge Instructions Discharge Activity: activity as tolerated Education Materials: Using Blood Thinners Anticoagulants, Stroke: Resources and Support, Stroke: Tips for Swallowing, Anatomy of the Brain, Discharge Instructions for Stroke, Risk Factors for Stroke, Stroke Regaining Movement, Stroke Self Care After, Healthy Lifestyle to Prevent ... Print Language: Turkmen Stand Alone Forms: Itzel Award Info., Patient Portal Info Letter Discharge Order Discharge Orders: Discharge (Routine); Ordered 10/03/24 Ordered By: Anila Lorenzana Quality Discharge Quality Measures VTE prophylaxis
[2024-10-06 06:37] LABS: Protein C Activity* 140 % normal (70-180); Protein S Activity* 62 % normal (60-140)
[2024-10-07 06:50] LABS: Homocysteine* 8.7 umol/L (<10.4)
[2024-10-10 15:34] LABS: Cardiolipin Ab (IgA) <2.0 APL-U/mL; Cardiolipin Ab (IgG) <2.0 GPL-U/mL
[2024-10-11 07:02] LABS: ANA Screen, IFA NEGATIVE (NEGATIVE); Cardiolipin Ab (IgM) <2.0 MPL-U/mL; Factor V Leiden Mutation NEGATIVE
== END 2024-10-03 12:35 | disposition home or self-care (01) | DRG 45 ==
LOC: SERX 07:14 → SERHOLD 08:12 → S2NX 19:00
PROVIDERS: Student in an Organized Health Care Education/Training Program; Admitting Provider Internal Medicine; Emergency Provider Emergency Medicine; Visit Provider Internal Medicine
DX: I63.81 Other cerebral infarction due to occlusion or stenosis of small artery (principal); G81.94 Hemiplegia, unspecified affecting left nondominant side; R47.81 Slurred speech; R47.1 Dysarthria and anarthria; I10 Essential (primary) hypertension; D68.00 Von Willebrand disease, unspecified; F17.210 Nicotine dependence, cigarettes, uncomplicated; R29.706 NIHSS score 6; R29.810 Facial weakness; Z79.02 Long term (current) use of antithrombotics/antiplatelets; Z79.82 Long term (current) use of aspirin; Z79.899 Other long term (current) drug therapy
CPT/HCPCS: 36415; 70450; 70496; 70498; 70544; 80053; 80061; 80307; 80320; 81001; 81241; 83036; 83090; 83735; 83880; 84100; 84443; 84484; 84703; 85025; 85303; 85306; 85610; 85730; 86038; 86147; 87086; 92610; 93005; 93306; 97162; 99285; A4649; J2405; J7120; Q9967; A9270; G0480

== ENCOUNTER 2024-10-06 08:39 | Inpatient (IN) | payer OTHER, SELFPAY ==
--- NOTE | 2024-10-06 | XR_ITS ---
Examinations: MRI Brain without intravenous contrast. MRA brain without intravenous contrast. MRA carotids without intravenous contrast 3-D vascular reconstructions Date and time of exam: October 06, 2024 1012 hours Comparison October 01, 2024 Indication: History CVA left basal ganglia with acute infarcts MRI brain October 01, 2024, recurrent facial numbness right upper extremity weakness today Technique: Multiple axial and sagittal images of the brain have been obtained MRA brain carotid images without contrast obtained, including 3-D postprocessing, vascular maximum intensity projection images Findings: Sellaturcica is not enlarged. The optic chiasm and infundibular stalk are not remarkable. Prepontine and interpeduncular cisterns are not enlarged. No localized enlargement of the medulla or keo. Fourth ventricle and cerebellar tonsils normal in position. Subacute hemorrhage is not seen. Fourth ventricle is midline. Mass in the cerebellopontine angle region is not evident. 7th and 8th nerve complexes exhibits symmetry. Globes are symmetrical with no retro-orbital mass. Increased white matter signal evident in the left basal ganglia Diffusion-weighted images demonstrate more pronounced restricted diffusion in the left basal ganglia and left caudate nucleus compared to the prior study Mass-effect upon the ventricular system is not identified. MRA carotid images degraded by patient motion. MRA brain images no large vessel cerebral occlusions Impression: More pronounced acute infarcts in the left basal ganglia and left caudate nucleus compared to the prior study
--- NOTE | 2024-10-06 08:46 | EKG_ITS ---
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
--- NOTE | 2024-10-06 08:46 | XR_ITS ---
Examination: CT brain head without contrast. 2-D sagittal coronal reconstructions Date and time of exam:October 06, 2024 0857 hours INDICATIONS: Stroke alert, onset right-sided body numbness beginning one hour ago, brain MRI October 01, 2024 acute infarct left caudate nucleus left basal ganglia COMPARISON: CT stroke alert brain scan October 01, 2024, brain MRI October 01, 2024 CTDI: vol (mGy):47.2 DLP: (mGycm):972 Technique: Multiple CT axial sections of the brain have been obtained, 5 mm slice thickness. Contrast has not been administered. 2-D sagittal, coronal reconstructions have been obtained Low dose protocols were performed. One or more of the following dose reduction techniques were used; automated exposure control, adjustment of the mA and/or KV according to patient size, use of iterative reconstruction technique. Findings: No significant ventricular enlargement. Left basal ganglia infarcts now visible, not a new finding, noted on the brain MRI October 01, 2024 Intra-axial or extra-axial hemorrhage density is not seen. No mass effect or midline shift Basal cisterns are not remarkable. Fourth ventricle is midline. Cranial vault intact. Impression: Negative for acute hemorrhage, mass effect or midline shift Suggest repeat brain MRI MRA without contrast, stroke protocol
[2024-10-06 08:51] VITALS: BP 146/92; PULSE 99; RESP 19; TEMP 36.8; O2SAT 100
[2024-10-06 08:52] VITALS: BMI 39.1
[2024-10-06 09:00] VITALS: PULSE 99; RESP 100; RESP 18
[2024-10-06 09:03] LABS: Basophils # (Auto) 0.1 Thou/mm3 (0.0-0.2); Basophils % (Auto) 1 % (0-2.5); Eosinophils # (Auto) 0.3 Thou/mm3 (0.0-0.5); Eosinophils % (Auto) 2 % (0-10); Hemoglobin 12.5 g/dL (12.0-16.0); Immature Granulocytes % (Auto) 0 % (0-0); Immature Granulocytes Auto 0.05 Thou/mm3 (0.00-0.00); Lymphocytes # (Auto) 7.7 Thou/mm3 (1.0-4.8); Lymphocytes % (Auto) 49 % (10-50); Mean Corpuscular HGB Conc 32.9 g/dl (31.0-37.0); Mean Corpuscular Hemoglobin 26.9 pg (25.0-35.0); Mean Corpuscular Volume 82 fL (80-100); Monocytes # (Auto) 0.9 Thou/mm3 (0.0-0.8); Monocytes % (Auto) 6 % (0-12); Neutrophils # (Auto) 6.6 Thou/mm3 (1.8-7.7); Neutrophils % (Auto) 43 % (37-80); Nucleated Red Blood Cell % 0 /100 WBC (0); Platelet Count 302 Thou/mm3 (140-440); RDW Standard Deviation 45.9 fL (36.4-46.3); Red Blood Count 4.64 Miln/mm3 (4.00-5.20); White Blood Count 15.6 Thou/mm3 (3.6-11.0)
--- NOTE | 2024-10-06 09:19 | PD.EDNEURO ---
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 Last known well at 08:00 AM today. Reports she was just evaluated here 5 days ago for similar symptoms and admitted for a stroke work-up. States she was discharged 3 days ago and was at her baseline without any residual deficits. No other associated symptoms reported. Related Data Home Medications ?Medication ?Instructions ?Recorded ?Confirmed ketoconazole 2 % topical cream 1 applic topical BID 10/01/24 10/01/24 lisinopril 40 mg tablet 40 mg PO QDAY 10/01/24 10/01/24 triamcinolone acetonide 0.1 % 1 applic topical BID 10/01/24 10/01/24 topical cream Previous Rx's ?Medication ?Instructions ?Recorded diphenhydramine HCl 25 mg tablet 25 mg PO Q6H #30 tabs 06/02/19 (Benadryl Allergy) guaifenesin 400 mg tablet 400 mg PO Q6H #20 tabs 06/02/19 aspirin 81 mg tablet,delayed 81 mg PO QDAY 1 month #30 tabs 10/03/24 release (Ecotrin Low Strength) atorvastatin 80 mg tablet 80 mg PO QPM 1 month #30 tabs 10/03/24 clopidogrel 75 mg tablet 75 mg PO QDAY 20 days #20 tabs 10/03/24 Allergies Allergy/AdvReac Type Severity Reaction Status Date / Time bee venom protein (honey bee) Allergy Severe Anaphylaxis Unverified 10/06/24 08:41 niacin Allergy Severe Anaphylaxis Verified 10/06/24 08:41 vancomycin Allergy Intermediate Hives Verified 10/06/24 08:41 Bee Stings Allergy Severe Anaphylaxis Uncoded 10/06/24 08:41 Review of Systems Review of Systems Systems Reviewed: All systems reviewed, normal except as documented Past Medical History Past Medical History CARDIAC: Positive Cardiac Disorders and Hypertension RESPIRATORY: Positive Asthma GASTROINTESTINAL: Positive Gastrointestinal Disorders and Gall Bladder Disease REPRODUCTIVE: Positive Endometriosis and Previous Pregnancies HEMATOLOGIC: Positive Blood Disorders, Anemia and Clotting Problems (clotting disorder, von willebrand disease) PSYCHO/SOCIAL: Positive Bipolar Disorder, Depression and Anxiety Surgical History SURGICAL: Positive Abdominal Surgery and Section Social History SMOKING STATUS: Current every day smoker SECOND HAND EXPOSURE: No (8-10 cig/day x27yrs) ED Exam General Limitations: Present no limitations General appearance: Present alert and in no apparent distress Head Head exam: Present atraumatic and normocephalic Eye Eye exam: Present PERRL and EOMI ENT ENT exam: Present normal exam, normal oropharynx and mucous membranes moist Neck Neck exam: Present normal inspection, full ROM and trachea midline Chest Chest inspection: Present normal inspection and symmetric chest wall rise Respiratory Respiratory exam: Present normal lung sounds bilaterally Cardiovascular Cardiovascular exam: Present regular rate, normal rhythm and normal heart sounds Abdominal Exam Abdominal exam: Present soft and normal bowel sounds Extremities Exam Extremities exam: Present normal inspection and full ROM Back Exam Back exam: Present normal inspection and full ROM Neurological Exam Neurological exam: Present alert, oriented X3 and other (Right facial droop including the forehead and eye closure, right lip droop. ) Psychiatric Psychiatric exam: Present normal affect and normal mood Skin Skin exam: Present warm, dry, intact and normal color Course Quality Measures Suspected type of Stroke: Non Acute Last known well (date): 10/06/24 Last known well (time): 08:00 Tenecteplase given: Reason(s) TPA not given: H/O intracranial hemorrhage, neoplasm, AVM, or aneurysm (recent stroke ) not given stroke Orders Category Date Time Status Bedside Blood Glucose NOW Care 10/06/24 08:46 Active Rock Star NOW Care 10/06/24 08:46 Active Continuous Pulse Oximetry NOW Care 10/06/24 08:46 Active EKG (ED ONLY) *Do not use* NOW Care 10/06/24 08:46 Completed In and Out Catheter NEEDED Care 10/06/24 08:46 Active Insert IV NOW Care 10/06/24 08:46 Active MRI Screening NOW Care 10/06/24 09:42 Active NIH Stroke Scale now Care 10/06/24 08:46 Active NPO NOW Care 10/06/24 08:46 Active Nurse Swallow Screen x1 Care 10/06/24 08:46 Active Consult to Neurology / Tele-Neurology Routine Cons 10/06/24 08:[address] stroke protocol Stat Exams 10/06/24 08:46 Completed EKG (ED Only) Stat Exams 10/06/24 08:46 Draft MR stroke protocol Stat Exams 10/06/24 Ordered CBC Stat Lab 10/06/24 08:55 Completed Comprehensive Metabolic Panel Stat Lab 10/06/24 08:55 Completed Drug Screen,Urine Stat Lab 10/06/24 08:46 Ordered HCG Titer if Positive Stat Lab 10/06/24 08:55 Completed Magnesium Stat Lab 10/06/24 08:55 Completed Partial Thromboplastin Time Stat Lab 10/06/24 08:55 Completed Prothrombin Time with INR Stat Lab 10/06/24 08:55 Completed Troponin I Stat Lab 10/06/24 08:55 Completed Urinalysis Stat Lab 10/06/24 08:46 Ordered Urine Culture Stat Lab 10/06/24 08:46 Ordered Ondansetron Inj [Zofran Inj] Med 10/06/24 08:45 Active 4 mg IV Q4HR PRN Oxygen Delivery NOW RT 10/06/24 08:46 Active Vital Signs Vital signs: Vital Signs Temperature 98.3 F 10/06/24 08:51 Pulse Rate 99 10/06/24 08:51 Respiratory Rate 19 10/06/24 08:51 Blood Pressure 146/92 H 10/06/24 08:51 Pulse Oximetry (%) 100 10/06/24 08:51 Oxygen Delivery Method Room Air 10/06/24 08:51 Pulse ox is 100% on room air which is adequate. Neuro Symptoms / Deficit MDM Narrative MDM Narrative:: Rose Abarca am scribing for and in the presence of Dr. Blount. Patient data External records reviewed:: [facility] previous records (I reviewed admission from 10/01/2024 through 10/03/2024 for stroke work-up. ) Clinical information provided by:: patient Social determinants that could affect healthcare access:: none Patient has the following chronic illnesses:: hypertension and von Willebrand disease How is presenting disease/condition affected by chronic disease/condition?: exacerbated by Evaluation data The following diagnostics were reviewed and interpreted by me:: lab results, radiology exam(s) and EKG tracing(s) (EKG at 09:46 am. Sinus rhythm, rate 68, no acute ischemic changes. ) Lab and/or radiology exams considered but not ordered:: None Interpretation Summary: Ordering Physician: Fletcher Blount MD Date of Service: 10/06/24 Procedure(s): CT stroke protocol Accession Number(s): [id number] cc: Fletcher Blount MD; Thiago Medley MD~ Examination: CT brain head without contrast. 2-D sagittal coronal reconstructions Date and time of exam:October 06, 2024 0857 hours INDICATIONS: Stroke alert, onset right-sided body numbness beginning one hour ago, brain MRI October 01, 2024 acute infarct left caudate nucleus left basal ganglia COMPARISON: CT stroke alert brain scan October 01, 2024, brain MRI October 01, 2024 CTDI: vol (mGy):47.2 DLP: (mGycm):972 Technique: Multiple CT axial sections of the brain have been obtained, 5 mm slice thickness. Contrast has not been administered. 2-D sagittal, coronal reconstructions have been obtained Low dose protocols were performed. One or more of the following dose reduction techniques were used; automated exposure control, adjustment of the mA and/or KV according to patient size, use of iterative reconstruction technique. Findings: No significant ventricular enlargement. Left basal ganglia infarcts now visible, not a new finding, noted on the brain MRI October 01, 2024 Intra-axial or extra-axial hemorrhage density is not seen. No mass effect or midline shift Basal cisterns are not remarkable. Fourth ventricle is midline. Cranial vault intact. Impression: Negative for acute hemorrhage, mass effect or midline shift Suggest repeat brain MRI MRA without contrast, stroke protocol Dictated By: Thiago Medley MD Signed By: <Electronically signed by Thiago Medley MD in OV> 10/06/24 0902 Medications / Prescriptions Medications or Prescriptions considered but not ordered:: None Medication administrations:: Medication Administration History Ondansetron HCl (Ondansetron Inj 2 Mg/Ml Inj 2 Ml) 4 mg IV Q4HR PRN PRN Reason: NAUSEA OR VOMITING Stop: 11/05/24 08:44 See above Consultations Consultation(s) initiated? (list below): Yes Consultation #1 (Physician, Specialty, Details): I spoke with teleneurologist Dr. Dawson, does not recommend TNK as noted in consultation note. Time: 09:33 Consultation #2 (Physician, Specialty, Details): I spoke with radiologist Dr. Medley. Time: 09:54 Consultation #3 (Physician, Specialty, Details): I spoke with resident working with Dr. Vora regarding admission. Discussed patients PMHx, HPI, ED course, exam findings, labs, and radiology results. The hospitalist will come evaluate patient in the ED. 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 Discussed patients ED course, exam findings, labs, and radiology results. The Hospitalist [agrees,declines] to accept the patient for admission. Disposition Plan Disposition Plan: Admit Critical Care Time Critical Care Time Critical Care Time: Yes Total Critical Care Time (min.): 35 Attestation: The high probability of sudden, clinically significant deterioration in the patient's condition required the highest level of my preparedness to intervene urgently. The services I provided to this patient were to treat and/or prevent clinically significant deterioration. Services included the following: chart data review, reviewing nursing notes and/or old charts, documentation time, senior financial consultant collaboration regarding findings and treatment options, medication orders and management, direct patient care, vital sign assessments and ordering, interpreting and reviewing diagnostic studies and lab tests. Aggregate critical care time includes only time during which I was engaged in work directly related to the patient's care, as described above, whether at bedside or elsewhere in the Emergency Department. It did not include time spent performing other reported procedures or the services of residents, students, nurses or physician assistants. Discharge Plan Plan Patient Disposition: Admit Acute Care w/in Hospital Prescriptions/Referrals Prescriptions/Med Rec: No Action diphenhydramine HCl [Benadryl Allergy] 25 mg tablet 25 mg PO Q6H Qty: 30 0RF guaifenesin 400 mg tablet 400 mg PO Q6H Qty: 20 0RF lisinopril 40 mg tablet 40 mg PO QDAY Patient Comments: TAKE 1 TABLET BY MOUTH EVERY DAY ketoconazole 2 % cream 1 applic TOPICAL BID Patient Comments: APPLY BY TOPICAL ROUTE TWICE A DAY TO THE AFFECTED AREA(S) Rx Instructions: Left foot triamcinolone acetonide 0.1 % cream 1 applic TOPICAL BID Patient Comments: APPLY THIN COAT TO AFFECTED AREA TWICE A DAY Rx Instructions: Left foot aspirin [Ecotrin Low Strength] 81 mg Tablet,Delayed Release (Dr/Ec) 81 mg PO QDAY 30 Days Qty: 30 0RF clopidogrel 75 mg Tablet 75 mg PO QDAY 20 Days Qty: 20 0RF atorvastatin 80 mg tablet 80 mg PO QPM 30 Days Qty: 30 0RF Referrals: No Primary/Family,Physician [Primary Care Provider] - In 1 week Problem List Clinical Impression: Meneses's palsy Patient/Caregiver Discharge Instructions Print Language: Welsh Stand Alone Forms: Itzel Award Info., Patient Portal Info Letter
[2024-10-06 09:20] LABS: INR 0.9 (0.9-1.3); Partial Thromboplastin Time 25.1 Seconds (22.0-36.0); Prothrombin Time 10.4 Seconds (9.0-12.2)
[2024-10-06 09:21] LABS: HCG Titer if Positive Negative
[2024-10-06 09:29] LABS: Alanine Aminotransferase 16 U/L (10-49); Albumin, Serum 4.6 gm/dL (3.5-5.0); Albumin/Globulin Ratio 1.6 (1.2-2.2); Alkaline Phosphatase 99 U/L (46-116); Anion Gap 10 (7-16); Aspartate Amino Transferase 16 U/L (0-34); BUN/Creatinine Ratio 16 Ratio (12-20); Bilirubin,Total 0.6 mg/dL (0.3-1.2); Blood Urea Nitrogen 14 mg/dL (9-23); Calcium 9.6 mg/dL (8.3-10.6); Calcium (Corrected) 9.6 mg/dL (8.5-10.1); Carbon Dioxide 26.4 mMol/L (20.0-31.0); Chloride 104 mMol/L (98-107); Creatinine (Component) 0.9 mg/dL (0.6-1.3); Estimated Creatinine Clearance 101.9 mL/min (>60); Globulin 2.9 gm/dL (2.3-3.5); Glucose 108 mg/dL (74-106); Magnesium 1.9 mg/dL (1.6-2.6); Osmolality,Calculated 280 (275-295); Sodium 140 mMol/L (136-145); Total Protein 7.5 gm/dL (5.7-8.2); Troponin I < 0.002 ng/mL (0.0-0.045); eGFR > 60 See Note
--- NOTE | 2024-10-06 09:37 | PD.TNEURO ---
Tele Neuro Consultation Consultation Date 10/06/24 Most Recent Vital Signs Last Vital Signs Temp 98.3 F 10/06/24 08:51 Pulse 99 10/06/24 08:51 Resp 19 10/06/24 08:51 BP 146/92 H 10/06/24 08:51 Pulse Ox 100 10/06/24 08:51 O2 Del Method Room Air 10/06/24 08:51 Laboratory-Coagulation Panel PT 10.4 Seconds (9.0-12.2) 10/06/24 08:55 INR 0.9 (0.9-1.3) 10/06/24 08:55 APTT 25.1 Seconds (22.0-36.0) 10/06/24 08:55 Consultation Narrative [facility] Tele[facility]urology Consult Services Patient Name:???CHAD AUSTIN Date of :???1985 Date of Service:???10/06/2024 08:49:00 Diagnosis:?R20.2 - Paresthesia of skin Impression: ?Patient is a 39 yo RH female with a PMH of recent left BG/thalamic ischemic stroke on 10/01/2024 without residual deficits on ASA, plavix, vonWIllebrand's disease and HTN who p/w right facial, hand and foot numbness. LNK 754AM per patient. NIHSS of 2, minimal dysarthria and right sided diminished sensation. Uncertain if acute stroke vs recrudescence of recent stroke symptoms. Thrombolytic therapy is not recommended with recent acute ischemic stroke within 3 months. Current exam is not c/w acute LVO. Our recommendations are outlined below. Recommendations: ? Stroke/Telemetry Floor ? Neuro Checks Q2-4 hours, notify neurology of decline in exam. ? Bedside Swallow Eval ? DVT Prophylaxis ? IV Fluids, Normal Saline ? Head of Bed less than 30 Degrees ? Euglycemia and Avoid Hyperthermia (PRN Acetaminophen) ? Antihypertensives PRN if Blood pressure is greater than 220/120 or there is a concern for End organ damage/contraindications for permissive HTN. If blood pressure is greater than 220/120 give labetalol PO or IV or Vasotec IV with a goal of 15% reduction in BP during the first 24 hours. MRI brain w/o to evaluate for acute stroke vs recrudescence of recent stroke symptoms Continue ASA, plavix for total of 21 days, monitor closely for adverse bleeding with h/o f vWB Statin for LDL goal <70 If MRI brain reveals acute ischemic event, please reconsult neurology additional diagnostic testing including CTAs, MIGUELINA, hypercoaguable panel, event/moritor/ILR may be indicated based on findings Recent ECHO and CTA head and neck reviewed Sign Out: ? Discussed with Emergency Department Provider Advanced Imaging: Advanced Imaging Deferred because: Non-disabling symptoms as verified by the patient; no cortical signs so not consistent with LVO Metrics: Last Known Well: 10/06/2024 07:54:00 Dispatch Time: 10/06/2024 08:49:00 Arrival Time: 10/06/2024 08:41:00 Initial Response Time: 10/06/2024 08:58:12Symptoms: right sided numbness. Initial patient interaction: 10/06/2024 09:20:00 NIHSS Assessment Completed: 10/06/2024 09:31:47Patient is not a candidate for Thrombolytic. Thrombolytic Medical Decision: 10/06/2024 09:31:48Patient was not deemed candidate for Thrombolytic because of following reasons: Significant head trauma or stroke in previous 3 months . I personally Reviewed the CT Head Primary Provider Notified of Diagnostic Impression and Management Plan on: 10/06/2024 09:40:25 History of Present Illness:Patient is a 39 year old Female. Patient was brought by private transportation with symptoms of right sided numbness. Patient is a 39 yo RH female with a PMH of recent left BG/thalamic ischemic stroke on 10/01/2024 without residual deficits on ASA, plavix, vonWIllebrand's disease and HTN who p/w right facial, hand and foot numbness. LNK 754AM per patient. She reports she had no residual deficits following her recent stroke. This morning following mild stressors she developed numbness of the right face and tongue, mild numbness of the right hand and foot. No associated weakness, vision changes, gait difficulties. Mild thick tongue feeling due to the numbness of her mouth. No headache. She has been compliant with ASA, plavix. Past Medical History: ?Hypertension ?Stroke Medications: No Anticoagulant use? Antiplatelet use:?Yes?ASA, plavix Reviewed EMR for current medications Allergies:? Reviewed Social History: Alcohol Use: No Family History: There is no family history of premature cerebrovascular disease pertinent to this consultation ROS : 14 Points Review of Systems was performed and was negative except mentioned in HPI. Past Surgical History: There Is No Surgical History Contributory To Today?s Visit Examination: BP(149/98),?Pulse(78), 1A: Level of Consciousness - Alert; keenly responsive?+ 0 1B: Ask Month and Age - Both Questions Right?+ 0 1C: Blink Eyes & Squeeze Hands - Performs Both Tasks?+ 0 2: Test Horizontal Extraocular Movements - Normal?+ 0 3: Test Visual [place] - No Visual Loss?+ 0 4: Test Facial Palsy (Use Grimace if Obtunded) - Normal symmetry?+ 0 5A: Test Left Arm Motor Drift - No Drift for 10 Seconds?+ 0 5B: Test Right Arm Motor Drift - No Drift for 10 Seconds?+ 0 6A: Test Left Leg Motor Drift - No Drift for 5 Seconds?+ 0 6B: Test Right Leg Motor Drift - No Drift for 5 Seconds?+ 0 7: Test Limb Ataxia (FNF/Heel-Shaw) - No Ataxia?+ 0 8: Test Sensation - Mild-Moderate Loss: Less Sharp/More Dull?+ 1 9: Test Language/Aphasia - Normal; No aphasia?+ 0 10: Test Dysarthria - Mild-Moderate Dysarthria: Slurring but can be understood?+ 1 11: Test Extinction/Inattention - No abnormality?+ 0 NIHSS Score:?2 Pre-Morbid Modified [place] Scale:0 Points = No symptoms at all Spoke with :?ED MD This consult was conducted in real time using interactive audio and video technology. Patient was informed of the technology being used for this visit and agreed to proceed. Patient located in hospital and provider located at home/office setting. Patient is being evaluated for possible acute neurologic impairment and high probability of imminent or life-threatening deterioration. I spent total of 25 minutes providing care to this patient, including time for face to face visit via telemedicine, review of medical records, imaging studies and discussion of findings with providers, the patient and/or family. Dr Phuong Dawson [facility] For Inpatient follow-up with [facility] physician please call [facility] at . As we are not an outpatient service for any post hospital discharge needs please contact the hospital for assistance. If you have any questions for the [facility] physicians or need to reconsult for clinical or diagnostic changes please contact us via [facility] at .
[2024-10-06 09:52] VITALS: BP 141/79; PULSE 72; RESP 15; TEMP 36.7; O2SAT 98
[2024-10-06 11:03] LABS: Collection Type, Urine Clean Catch
[2024-10-06 11:18] LABS: Amphetamine/Methamp Scrn,U Positive (Negative); Barbiturate Screen,Urine Negative (Negative); Benzodiazepines Screen,Urine Negative (Negative); Benzoylecgonine Screen, Ur Negative (Negative); Fentanyl Screen,Urine Negative (Negative); Opiate Screen,Urine Negative (Negative); THC Screen,Urine Negative (Negative)
[2024-10-06 12:00] VITALS: BP 129/92; PULSE 77; RESP 18; TEMP 36.5; O2SAT 97
--- NOTE | 2024-10-06 12:30 | PC.NURSE ---
PT REPORTS SHE ALREADY HAD AT HOME DOSE OF ASPIRIN AND CLOPIDOGREL THIS MORNING. ORDERING PROVIDER CALLED AND NOTIFIED. PER MD HOLD MEDS UNTIL FURTHER INSTRUCTION.
[2024-10-06 12:32] LABS: Amorphous Crystals,Urine Present (Absent); Bilirubin,Urine Negative (Negative); Blood,Urine Negative (Negative); Color,Urine Lt-Yellow (Lt Yel-Yel); Glucose, Urine Negative (Negative); Hyaline Casts,Urine < 1 /hpf (0-1); Ketones,Urine Negative (Negative); Leukocyte Esterase,Urine Negative (Negative); Nitrite,Urine Negative (Negative); PH,Urine 7.5 (5.0-7.0); Protein,Urine Negative (Neg - Trace); RBC,Urine 1 /hpf (0-3); Specific Gravity,Urine 1.017 (1.001-1.035); Squamous Epithelial Cell,Urine 1 /hpf (0-5); Urobilinogen,Urine Negative mg/dL (0.0-1.0); WBC,Urine 10 /hpf (0-5)
[2024-10-06 12:40] LABS: Clarity,Urine Hazy (Clear/Hazy)
--- NOTE | 2024-10-06 13:20 | PD.RESHP ---
Documentation for date of: 10/06/24 [facility] History of Present Illness History of present illness: Jasmin is a 39 y/o female with PMHx of hypertension, previous CVA (September 2024), and von Willebrand disease who comes in for an evaluation of maxillary numbness with associated tongue numbness with no other residual motor or sensory deficits in upper or lower extremities had started this morning prior to dropping her kids off at school. Of note patient was recently discharged from the hospital on 10/03/2024 for a CVA in the left caudate nucleus and basal ganglia. She was discharged on dual antiplatelet therapy in addition to high intensity statin and was recommended to follow-up with her PCP outpatient. Today she says she does not have any motor deficits, however was experiencing numbness and tingling with no associated headache and decided to come evaluated in the ED in which she drove here. She denies any recent travel, chest pain, headache, nausea, vomiting and has been taking her medications as prescribed. 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 She also says that she was diagnosed with hypertension about 19 years ago. Does not see a glass smoother. She currently is not feeling any numbness or tingling in her tongue or maxillary region of her mouth. ED course: She came to the ED vitals of a blood pressure 141/79, heart rate 72, respiratory rate 15, temperature 98.1, saturating 98% on room air. She was worked up was found to have a sodium 140, potassium 4, BUN/creatinine 14 and 0.9 respectively, glucose 108, coag panel negative, osmolarity 280, white count 15.6, hemoglobin 12.5, platelets 302, ACL 216, calcium 9.6, troponin negative x 1. EKG showed normal sinus rhythm at a rate of 68, QT 404. Head CT was ordered and showed negative for acute hemorrhage or midline shift. Teleneuro was consulted with seen the patient and recommended no TNK, and evaluated patient with NIHSS score of 2. They also recommended further workup including MRI of brain for stroke workup. Medicine consulted and patient was admitted to the floors floors. Past medical history: As above Surgical history: 1 , cholecystectomy in July 2024 Allergies: Vancomycin gives her hives in addition to bee stings give her anaphylaxis Medicines: Lisinopril 40 mg daily, Lipitor 80 mg, aspirin 81, Plavix 75 Family history: Denies history of family history of stroke, says that her grandfather had a heart attack in 70s. Said her mom had some form of butt cancer and from something else. Denies family history of diabetes mellitus Social history: Born and raised in [place]. Moved to [facility] in [place] for some time. 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 Has 4 kids, one of them was a as that was her third child and did not get a for fourth child because of von Willebrand disease. Used to be a heavy drinker about 9 years ago but does not drink now. Still is a smoker used to smoke up to 12 cigarettes a day, is now smoking 5 cigarettes a day. There is some substance abuse but patient has as well Review of Systems Review of Systems Narrative Review of Systems: Constitutional: No fever, chills, fatigue, weakness, weight loss HEENT: No eye pain, vision loss, ear pain, hearing loss, dysphagia, Cardiovascular: No chest pain, palpitations, edema, pain with walking Respiratory: No cough, shortness of breath, wheezing GI: No NVD, abdominal pain, constipation, blood in stool, loss of appetite, heartburn Extremities: No presence of pitting edema MSK: No back pain, joint pain, joint swelling Neuro: No dizziness, numbness, weakness, headaches, seizures, tremors Psych: No anxiety, depression Exam Vital Signs Temp Pulse Resp BP Pulse Ox O2 Del Method 97.7 F 77 18 129/92 H 97 Room Air 10/06/24 12:10/06/24 12:10/06/24 12:10/06/24 12:10/06/24 12:10/06/24 12:00 Narrative Exam General: AAOx3, NAD, obese, wearing glasses, has colored hair HEENT: Dry mucous membranes, conjunctiva clear, EOMI, PERRLA, poor dentition Cardiovascular: S1, S2, radial pulses +2 bilat, RRR, no murmurs auscultated Pulmonary: CTAB bilat no cough, no wheezing GI: No tenderness to light or deep palpitation, no guarding, rigidity, rebound tenderness or distension Extremities: No presence of trace or pitting edema in lower extremities bilaterally, dorsalis pedis pulses +2 bilaterally Neuro: AAOx3, no focal motor or sensory deficits in the UE or LE bilat, however there may be some left-sided residual facial droop, motor strength intact in upper lower extremities in addition to sensation Psych: Good judgement, thought and behavior. Cooperative Results: Labs 10/07/24 05:20 10/07/24 05:20 Labs: Short CBC 10/06/24 Range/Units 08:55 WBC 15.6 H (3.6-11.0) Thou/mm3 Hgb 12.5 (12.0-16.0) g/dL Hct 38.0 (36.0-46.0) % Plt Count 302 (140-440) Thou/mm3 BMP 10/06/24 08:55 Sodium 140 Potassium 4.0 Chloride 104 Carbon Dioxide 26.4 BUN 14 Creatinine 0.9 Glucose 108 H Calcium 9.6 Cardiac Enzymes 10/06/24 Range/Units 08:55 Troponin I < 0.002 (0.0-0.045) ng/mL Liver Function 10/06/24 Range/Units 08:55 Total Bilirubin 0.6 (0.3-1.2) mg/dL AST 16 (0-34) U/L ALT 16 (10-49) U/L Alkaline Phosphatase 99 (46-116) U/L Albumin 4.6 (3.5-5.0) gm/dL Urine 10/06/24 Range/Units 10:59 Urine Color Lt-Yellow (Lt Yel-Yel) Urine Clarity Hazy (Clear/Hazy) Urine pH 7.5 H (5.0-7.0) Ur Specific [place] 1.017 (1.001-1.035) Urine Protein Negative (Neg - Trace) Urine Glucose (UA) Negative (Negative) Quality Measures Quality Measures stroke Suspected type of Stroke: Non Acute Last known well (date): 10/06/24 Last known well (time): 08:00 Tenecteplase given: Reason(s) Tenecteplase not given: H/O intracranial hemorrhage, neoplasm, AVM, or aneurysm (recent stroke ) not given Rehab services: PT evaluation ordered VTE Prophylaxis: mechanical Antithrombotic by day 2:: not indicated (describe) Statin ordered: <75 y/o high intensity dose Anticoagulation ordered for A-fib or flutter (current or hx): not indicated Medications Home Medications and Allergies Home Medications ?Medication ?Instructions ?Recorded ?Confirmed ?Type ketoconazole 2 % topical cream 1 applic topical BID 10/01/24 10/01/24 History lisinopril 40 mg tablet 40 mg PO QDAY 10/01/24 10/01/24 History triamcinolone acetonide 0.1 % 1 applic topical BID 10/01/24 10/01/24 History topical cream Allergies Allergy/AdvReac Type Severity Reaction Status Date / Time bee venom protein (honey bee) Allergy Severe Anaphylaxis Unverified 10/06/24 14:29 niacin Allergy Severe Anaphylaxis Verified 10/06/24 14:29 vancomycin Allergy Intermediate Hives Verified 10/06/24 14:29 Bee Stings Allergy Severe Anaphylaxis Uncoded 10/06/24 14:29 Visit Medications Acetaminophen (Acetaminophen 325 Mg Tablet) 650 mg PO Q6H PRN PRN Reason: Fever >100 or pain 1-3 Stop: 11/05/24 11:10 Aspirin (Aspirin Ec 81 Mg Tabec) 81 mg PO X1 ONE Stop: 10/07/24 09:01 Clopidogrel Bisulfate (Clopidogrel Bisulfate 75 Mg Tablet) 75 mg PO QDAY [facility] Stop: 11/05/24 11:14 Last Admin: 10/06/24 12:49 Dose: Not Given Ondansetron HCl (Ondansetron Inj 2 Mg/Ml Inj 2 Ml) 4 mg IV Q4HR PRN PRN Reason: NAUSEA OR VOMITING Stop: 11/05/24 08:44 Pantoprazole Sodium (Pantoprazole Inj 40 Mg Vial) 40 mg IVP QDAY [facility] Stop: 11/06/24 08:59 Discontinued Medications Aspirin (Aspirin 325 Mg Tablet) 325 mg PO X1 ONE Stop: 10/06/24 11:15 Last Admin: 10/06/24 12:49 Dose: Not Given Assessment & Plan Plan Assessment Jasmin is a 39 y/o female with PMHx of hypertension, previous CVA (September 2024), and von Willebrand disease who is admitted for acute CVA rule out. 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 Neurology consulted, appreciate recs ? MR stroke protocol ? Speech therapy ? Neurochecks every 4 hours ? Head of bed elevation 30 degrees ? DVT prophylaxis ? Bedrest ? Follow-up factor V Leiden and cardiolipin antibodies ? DAPT ? Lipitor 80 mg ? Allowing for permissive hypertension #Hypertension Plan: ? 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 Consider outpatient follow-up #History of pulmonary nodule 10 mm seen on imaging last visit, [place] Plan: ? Consider CT chest #Substance abuse U-Tox last week and now shows meth positive Plan: ? director of volunteer services referral #Health Maintenance Disposition: Telemetry DVT prophylaxis: SCDs GI prophylaxis: Protonix Diet: Pending swallow eval CODE STATUS: Full Patient seen and care discussed with my attending physician, Dr. Vielka Barber, PGY-1 Attending Provider Attestation/Addendum I have examined the patient, reviewed labs and imaging findings, discussed the case with the resident(s), and reviewed entered orders. I agree with the plan of care as outlined in this note, with these additional summaries/recommendations: Patient seen at bedside. Patient has a history of recent left basal ganglia/thalamic ischemic stroke on 10/01/2024 without residual deficits on DAPT who presented to [facility] emergency department with chief complaints of right facial, hand, and foot numbness. NIH SS score of 2 on admission. During my evaluation she reports her symptoms have mostly resolved. Teleneurology was consulted who recommends every 4 hour checks and notifying neurology decline in exam. Bedside swallow, euglycemia, permissive hypertension, MRI brain, continue DAPT, LDL less than 70, and MRI brain. Brain MRI completed which showed more pronounced acute infract's in the left basal ganglia and left caudate nuclear this compared to prior study last week. Findings are suspicious for new CVA/TIA. Consult in-house neurology, recommendations appreciated. Continue high intensity statin. Thus far hypercoagulable panel on previous admission negative and we will follow-up further results. Suspect patient's biggest risk factor for CVAs at such a young age is her continued methamphetamine abuse. Patient counseled at bedside on cessation. Repeat hematology and chemistry panel in AM. Dr. Vielka MD
[2024-10-06 16:00] VITALS: BP 147/93; PULSE 85; RESP 23; TEMP 36.1; O2SAT 99
[2024-10-06 16:06] LABS: Basophils (Manual) 1 % (0-2); Eosinophils (Manual) 5 % (0-4); Lymphocytes (Manual) 60 % (20-44); Monocytes (Manual) 2 % (2-9); Neutrophils (Manual) 32 % (50-70)
[2024-10-06 20:00] VITALS: BP 117/76; PULSE 81; PULSE 99; RESP 18; TEMP 36.1; O2SAT 99
[2024-10-06] MEDS: ATORVASTATIN CALCIUM 20 MG TABLET 80 MG PO (20:08)
[2024-10-07] VITALS: BP 107/63; PULSE 72; RESP 17; TEMP 36.4; O2SAT 97
[2024-10-07 04:00] VITALS: BP 118/67; PULSE 62; PULSE 68; RESP 16; TEMP 36.5; O2SAT 99
[2024-10-07 06:00] VITALS: BMI 39.1
[2024-10-07 06:19] LABS: Basophils # (Auto) 0.1 Thou/mm3 (0.0-0.2); Basophils % (Auto) 1 % (0-2.5); Eosinophils # (Auto) 0.3 Thou/mm3 (0.0-0.5); Eosinophils % (Auto) 2 % (0-10); Hematocrit 36.1 % (36.0-46.0); Hemoglobin 11.7 g/dL (12.0-16.0); Immature Granulocytes % (Auto) 0 % (0-0); Immature Granulocytes Auto 0.04 Thou/mm3 (0.00-0.00); Lymphocytes # (Auto) 5.9 Thou/mm3 (1.0-4.8); Lymphocytes % (Auto) 49 % (10-50); Mean Corpuscular HGB Conc 32.4 g/dl (31.0-37.0); Mean Corpuscular Volume 83 fL (80-100); Monocytes # (Auto) 0.7 Thou/mm3 (0.0-0.8); Monocytes % (Auto) 6 % (0-12); Neutrophils # (Auto) 5.1 Thou/mm3 (1.8-7.7); Neutrophils % (Auto) 42 % (37-80); Nucleated Red Blood Cell % 0 /100 WBC (0); Platelet Count 270 Thou/mm3 (140-440); RDW Standard Deviation 46.3 fL (36.4-46.3); Red Blood Count 4.34 Miln/mm3 (4.00-5.20); White Blood Count 12.1 Thou/mm3 (3.6-11.0)
[2024-10-07 07:05] LABS: INR 0.9 (0.9-1.3); Partial Thromboplastin Time 24.7 Seconds (22.0-36.0); Prothrombin Time 10.2 Seconds (9.0-12.2)
[2024-10-07 07:12] LABS: Alanine Aminotransferase 12 U/L (10-49); Albumin, Serum 3.8 gm/dL (3.5-5.0); Albumin/Globulin Ratio 1.5 (1.2-2.2); Alkaline Phosphatase 86 U/L (46-116); Anion Gap 8 (7-16); Aspartate Amino Transferase 10 U/L (0-34); BUN/Creatinine Ratio 20 Ratio (12-20); Bilirubin,Total 0.4 mg/dL (0.3-1.2); Blood Urea Nitrogen 18 mg/dL (9-23); Calcium 8.8 mg/dL (8.3-10.6); Carbon Dioxide 27.1 mMol/L (20.0-31.0); Cardiac Risk Estimate 3.7 RATIO (3.7-5.6); Chloride 106 mMol/L (98-107); Cholesterol 114 mg/dL (132-200); Creatinine (Component) 0.9 mg/dL (0.6-1.3); Estimated Creatinine Clearance 101.9 mL/min (>60); Globulin 2.6 gm/dL (2.3-3.5); Glucose 105 mg/dL (74-106); HDL Cholesterol 31 mg/dL (40-60); LDL Cholesterol,Calculated 63 mg/dL (0-130); Magnesium 1.7 mg/dL (1.6-2.6); Osmolality,Calculated 283 (275-295); Phosphorous 4.2 mg/dL (2.4-5.1); Potassium 4.3 mMol/L (3.4-5.1); Sodium 141 mMol/L (136-145); Total Protein 6.4 gm/dL (5.7-8.2); Triglycerides 102 mg/dL (30-150); eGFR > 60 See Note
[2024-10-07 08:00] VITALS: BP 137/70; PULSE 56; PULSE 85; RESP 14; TEMP 36.3; O2SAT 99
[2024-10-07] MEDS: PANTOPRAZOLE INJ 40 MG VIAL IVP (08:43)
[2024-10-07] MEDS: CLOPIDOGREL BISULFATE 75 MG TABLET PO (08:43)
[2024-10-07] MEDS: ASPIRIN EC 81 MG TABEC PO (08:44)
--- NOTE | 2024-10-07 09:06 | PC.SS ---
Follow up note: Neuro recommendations pending. PT pending.
--- NOTE | 2024-10-07 10:21 | ESCONSULT_ITS ---
HPI Data of Consult Requesting Physician: Alonzo Vora MD Admitting Provider: Alonzo Vora MD Attending Provider: Alonzo Vora MD Primary Care Provider: Physician No Primary/Family Consult Narrative Reason for consult: right face numbness History of present illness: Patient is a 39-year-old female with a previous medical history of hypertension, von Willebrand disease and recent left basal ganglia and thalamus ischemic stroke (10/01/2024 without residual deficits) who came into the hospital on 10/06/2024. She reports that she was helping children to get ready in the morning and felt right facial, hand and foot numbness. Head CT showed old left basal ganglia infarcts which were noted on MRI on 10/01/2024, negative for new lesions. Brain MRI showed more pronounced acute infarcts in the left basal ganglia and left caudate nucleus compared to the prior study. Utox was positive for methamphetamine. Teleneuro was consulted, patient is not candidate for TNK due to recent acute ischemic stroke within the last 3 months, NIHSS was 2. Differential diagnosis acute stroke versus recrudescence of recent stroke. Neurology was consulted for acute stroke rule out. 10/07/2024: Blood pressure 137/70, heart rate 56, afebrile, saturating well on room air. Patient reports numbness in the right side of the face, asking to go home. cc:: cc: Alonzo Vora MD Review of Systems Review of Systems Systems Reviewed: All systems reviewed, normal except as documented Past Medical History Past Medical History NEUROLOGIC: Positive Cerebrovascular Accident (September 2024) CARDIAC: Positive Hypertension HEMATOLOGIC: Positive Blood Disorders (von Willebrand disease) Exam Vital Signs Temp Pulse Resp BP Pulse Ox O2 Del Method 97.4 F 56 L 14 137/70 H 99 Room Air 10/07/24 08:00 10/07/24 08:00 10/07/24 08:00 10/07/24 08:00 10/07/24 08:00 10/07/24 08:00 Narrative Exam Gen: Well-developed and well-nourished. HEENT: NCAT, PERRLA, EOMI, MMM, anicteric conjunctivae. CVS: normal S1 and S2. RRR. No M/R/G. Resp: CTA B/L. No rhonchi, rales, crackles or wheezing. Abd: soft, non-tender, non-distended. BS+ in all 4 quadrants. MSK: Good ROM in BUE & BLE. No edema or rash. Neuro: Right sided lower facial droop. Right sided facial numbness. Strength 5/5 in BUE & BLE. Alert and oriented x3. Psych: appropriate mood and affect. Results Labs 10/07/24 05:20 10/07/24 05:20 Labs: Short CBC 10/07/24 Range/Units 05:20 WBC 12.1 H (3.6-11.0) Thou/mm3 Hgb 11.7 L (12.0-16.0) g/dL Hct 36.1 (36.0-46.0) % Plt Count 270 D (140-440) Thou/mm3 BMP 10/07/24 05:20 Sodium 141 Potassium 4.3 Chloride 106 Carbon Dioxide 27.1 BUN 18 Creatinine 0.9 Glucose 105 Calcium 8.8 Liver Function 10/07/24 Range/Units 05:20 Total Bilirubin 0.4 (0.3-1.2) mg/dL AST 10 (0-34) U/L ALT 12 (10-49) U/L Alkaline Phosphatase 86 (46-116) U/L Albumin 3.8 D (3.5-5.0) gm/dL Urine 10/06/24 Range/Units 10:59 Urine Color Lt-Yellow (Lt Yel-Yel) Urine Clarity Hazy (Clear/Hazy) Urine pH 7.5 H (5.0-7.0) Ur Specific [place] 1.017 (1.001-1.035) Urine Protein Negative (Neg - Trace) Urine Glucose (UA) Negative (Negative) Quality Measures Quality Measures stroke Suspected type of Stroke: Non Acute Last known well (date): 10/06/24 Last known well (time): 08:00 Tenecteplase given: Reason(s) Tenecteplase not given: H/O intracranial hemorrhage, neoplasm, AVM, or aneurysm (recent stroke ) not given Rehab services: PT evaluation ordered VTE Prophylaxis: pharmaceutical Antithrombotic by day 2:: ordered Statin ordered: >75 y/o moderate or high intensity dose Anticoagulation ordered for A-fib or flutter (current or hx): not indicated Medications Home Medications and Allergies Home Medications ?Medication ?Instructions ?Recorded ?Confirmed ?Type ketoconazole 2 % topical cream 1 applic topical BID 04 /26/25 04/26/25 History lisinopril 40 mg tablet 40 mg PO QDAY 10/01/2410/01 History triamcinolone acetonide 0.1 % 1 applic topical BID 10/01/24 History topical cream Allergies Allergy/AdvReac Type Severity Reaction Status Date / Time bee venom protein (honey bee) Allergy Severe Anaphylaxis Unverified 10/06/24 14:29 niacin Allergy Severe Anaphylaxis Verified 10/06/24 14:29 vancomycin Allergy Intermediate Hives Verified 10/06/24 14:29 Bee Stings Allergy Severe Anaphylaxis Uncoded 10/06/24 14:29 Visit Medications Acetaminophen (Acetaminophen 325 Mg Tablet) 650 mg PO Q6H PRN PRN Reason: Fever >100 or pain 1-3 Stop: 11/05/24 11:10 Aspirin (Aspirin Ec 81 Mg Tabec) 81 mg PO QDAY [facility] Stop: 11/07/24 08:59 Atorvastatin Calcium (Atorvastatin Calcium 20 Mg Tablet) 80 mg PO [facility] Stop: 11/05/24 20:59 Last Admin: 10/06/24 20:08 Dose: 80 mg Clopidogrel Bisulfate (Clopidogrel Bisulfate 75 Mg Tablet) 75 mg PO QDAY [facility] Stop: 11/05/24 11:14 Last Admin: 10/07/24 08:43 Dose: 75 mg Ondansetron HCl (Ondansetron Inj 2 Mg/Ml Inj 2 Ml) 4 mg IV Q4HR PRN PRN Reason: NAUSEA OR VOMITING Stop: 11/05/24 08:44 Pantoprazole Sodium (Pantoprazole Inj 40 Mg Vial) 40 mg IVP QDAY [facility] Stop: 11/06/24 08:59 Last Admin: 10/07/24 08:43 Dose: 40 mg Discontinued Medications Aspirin (Aspirin 325 Mg Tablet) 325 mg PO X1 ONE Stop: 10/06/24 11:15 Last Admin: 10/06/24 12:49 Dose: Not Given Aspirin (Aspirin Ec 81 Mg Tabec) 81 mg PO X1 ONE Stop: 10/07/24 09:01 Last Admin: 10/07/24 08:44 Dose: 81 mg Assessment & Plan Plan Patient is a 39-year-old female with a previous medical history of hypertension, von Willebrand disease and recent left basal ganglia and thalamus ischemic stroke (10/01/2024 without residual deficits) who came into the hospital on 10/06/2024. #Stroke rule out #Subacute left basal ganglia and thalamic stroke Patient has right sided numbness and right sided facial droop. She reports that facial droop is resudual after the stroke. Head CT showed old left basal ganglia infarcts which were noted on MRI on 10/01/2024, negative for new lesions. Brain MRI showed more pronounced acute infarcts in the left basal ganglia and left caudate nucleus compared to the prior study. Homocysteine levels are normal. Ddx: acute stroke vs stroke recrudescence Plan: ? Speech therapy, PT eval ? Neurochecks every 4 hours ? Head of bed elevation 30 degrees ? DVT prophylaxis ? factor V Leiden and cardiolipin antibodies pending ? continue aspirin and plavix ? constinue atorvastatin 80 mg daily ?Maintain normothermia and euglycemia ? Blood pressure control - MIGUELINA - hypercoagulation panel - telemetry - abstain from methamphetamine #Hypertension #History of von Willebrand disease #History of pulmonary nodule #Substance abuse -management per primary team Plan of care discussed with attending Dr. Daniels. Marva Cagle MD, PGY 1. Attending Provider Attestation/Addendum I independently reviewed the medical record and I agreed with resident findings, assessment and plan of care. Patient's clinical presentation of worsening right facial weakness and repeat MRI brain findings are consistent with recent ischemic cerebrovascular accident rather than new event. Will go ahead and get transesophageal echocardiogram and hypercoagulopathy panel to complete the workup. Continue with aspirin, Plavix and statin. Advised her about the importance of drug cessation. Continue with the speech and physical therapy as needed.
--- NOTE | 2024-10-07 10:41 | XR_ITS ---
Examination: AP chest single view TECHNIQUE: AP portable upright chest single view Exam date and time: October 07, 2024 1149 hours INDICATIONS: Follow-up pulmonary nodule FINDINGS: Normal heart size. Lungs are clear. No pulmonary nodule depicted Osseous structures intact IMPRESSION: No active disease
--- NOTE | 2024-10-07 11:34 | PC.PT ---
PT eval only. Patient is xI and safe to ambulate in the halls and to the bathroom with no DME or assistance. RN made aware.
--- NOTE | 2024-10-07 11:38 | PC.SS ---
SS met with patient regarding her d/c plan.? Pt is alert/oriented.? Pt was admitted for Stroke R/O.? Pt confirmed demographic and contact information is correct on facesheet.? Pt resides with sister and kids.? Pt ambulates independently without assistance or DME.? Pt is ok with all ADLs.? 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 Patient?s pharmacy of choice [facility] [address] Pt named her sister, Elizabeth Jerome medical decision maker if unable.? Patient?s choice is to return home upon d/c.? Pt does not have an advance directive, SS offered, and pt declined.? Pt states not diabetic and is not on dialysis.? Pt followed up with PCP October 03, 2024. D/C plan:? Return home Next of Kin:? ?Elizabeth Jerome, sister, phone# [phone] PCP:? ? [facility] in [place] Address:? Correct on facesheet
[2024-10-07 12:00] VITALS: BP 140/93; PULSE 74; PULSE 81; RESP 13; TEMP 36.1; O2SAT 99
--- NOTE | 2024-10-07 13:29 | ESPR_ITS ---
Documentation for date of: 10/07/24 Subjective Subjective Interval history: Patient examined at bedside today. No acute overnight events. She says she is doing well and is wondering when she can go home. She does admit to substance abuse and she was counseled on substance cessation. She says that she still has some residual numbness at this time. Denied having a headache or vomiting at this time. She has no other complaints at this time Exam Vital Signs Temp Pulse Resp BP Pulse Ox O2 Del Method 96.9 F 74 13 140/93 H 99 Room Air 10/07/24 12:00 10/07/24 12:00 10/07/24 12:00 10/07/24 12:00 10/07/24 12:00 10/07/24 12:00 Narrative Exam General: AAOx3, NAD, obese, wearing glasses, has colored hair HEENT: Dry mucous membranes, conjunctiva clear, EOMI, PERRLA, poor dentition Cardiovascular: S1, S2, radial pulses +2 bilat, RRR, no murmurs auscultated Pulmonary: CTAB bilat no cough, no wheezing GI: No tenderness to light or deep palpitation, no guarding, rigidity, rebound tenderness or distension Extremities: No presence of trace or pitting edema in lower extremities bilaterally, dorsalis pedis pulses +2 bilaterally Neuro: AAOx3, no focal motor or sensory deficits in the UE or LE bilat, filling defect of cheeks when she puffs then up, some residual facial droop when smiling, some maxillary numbness still present Psych: Good judgement, thought and behavior. Cooperative Objective Labs 10/07/24 05:20 10/07/24 05:20 Labs: Laboratory Results - last 24 hr 10/06/24 10/07/24 08:55 05:20 WBC 12.1 H RBC 4.34 Hgb 11.7 L Hct 36.1 MCV 83 MCH 27.0 MCHC 32.4 RDW Std Deviation 46.3 Plt Count 270 D Neut % (Auto) 42 Lymph % (Auto) 49 [place] % (Auto) 6 Eos % (Auto) 2 Baso % (Auto) 1 Neut # (Auto) 5.1 Lymph # (Auto) 5.9 H [place] # (Auto) 0.7 Eos # (Auto) 0.3 Baso # (Auto) 0.1 Immature Gran # (Auto) 0.04 H Absolute Nucleated RBC 0.00 Immature Gran % 0 Neutrophils % (Manual) 32 L Monocytes % (Manual) 2 Eosinophils % (Manual) 5 H Basophils % (Manual) 1 Nucleated RBC % 0 Lymphocytes (Manual) 60 H PT 10.2 INR 0.9 APTT 24.7 Sodium 141 Potassium 4.3 Chloride 106 Carbon Dioxide 27.1 Anion Gap 8 BUN 18 Creatinine 0.9 Estim Creat Clear Calc 101.9 eGFR > 60 BUN/Creatinine Ratio 20 Glucose 105 Calculated Osmolality 283 Calcium 8.8 Corrected Calcium 9.0 Phosphorus 4.2 Magnesium 1.7 Total Bilirubin 0.4 AST 10 ALT 12 Alkaline Phosphatase 86 Total Protein 6.4 Albumin 3.8 D Globulin 2.6 Albumin/Globulin Ratio 1.5 Triglycerides 102 Cholesterol 114 L LDL Cholesterol, Calc 63 HDL Cholesterol 31 L Cholesterol/HDL Ratio 3.7 Quality Measures Quality Measures stroke Suspected type of Stroke: Non Acute Last known well (date): 10/06/24 Last known well (time): 08:00 Tenecteplase given: Reason(s) Tenecteplase not given: H/O intracranial hemorrhage, neoplasm, AVM, or aneurysm (recent stroke ) not given Rehab services: PT evaluation ordered VTE Prophylaxis: mechanical Antithrombotic by day 2:: not indicated (describe) Statin ordered: <75 y/o high intensity dose Anticoagulation ordered for A-fib or flutter (current or hx): not indicated Assessment & Plan Assessment Current Active Medications: Generic Name Dose Route Start Last Admin Trade Name Freq PRN Reason Stop Dose Admin Acetaminophen 650 mg 10/06/24 11:11 Acetaminophen 325 Mg Tablet PO 11/05/24 11:10 Q6H PRN Fever >100 or pain 1-3 Aspirin 81 mg 10/08/24 09:00 Aspirin Ec 81 Mg Tabec PO 11/07/24 08:59 QDAY JONI Atorvastatin Calcium 80 mg 10/06/24 21:00 10/06/24 20:08 Atorvastatin Calcium 20 Mg Tablet PO 11/05/24 20:59 80 mg HS JONI Administration Clopidogrel Bisulfate 75 mg 10/06/24 11:15 10/07/24 08:43 Clopidogrel Bisulfate 75 Mg Tablet PO 11/05/24 11:14 75 mg QDAY JONI Administration Ondansetron HCl 4 mg 10/06/24 08:45 Ondansetron Inj 2 Mg/Ml Inj 2 Ml IV 11/05/24 08:44 Q4HR PRN NAUSEA OR VOMITING Pantoprazole Sodium 40 mg 10/07/24 09:00 10/07/24 08:43 Pantoprazole Inj 40 Mg Vial IVP 11/06/24 08:59 40 mg QDAY JONI Administration Plan Assessment Jasmin is a 39 y/o female with PMHx of hypertension, previous CVA (September 2024), and von Willebrand disease who is admitted for acute CVA rule out. #Acute CVA rule out #History of stroke Patient did have some numbness in her maxillary region and tongue region, however that has resolved Patient did have a stroke last week which was in the acute left caudate nucleus and basal ganglia Echo showed normal LV, preserved ejection fraction 60 to 65%, no PFO Unlikely patient has bleeding disorder on top of hypercoagulable disorder Protein C&S intact Will need to follow-up with MRI to see if patient has had additional stroke Patient denies having DVT in life including during A1c 5.5 and LDL 84 Stroke likely related to substance abuse of meth Factor V Leiden negative Plan: ? Neurology consulted, appreciate recs ? MR stroke protocol ? Physical therapy referral ? Neurochecks every 4 hours ? Head of bed elevation 30 degrees ? DVT prophylaxis ? Bedrest ? Follow-up cardiolipin antibodies ? DAPT ? Lipitor 80 mg ? Allowing for permissive hypertension at this time #Hypertension Chronic Plan: ? 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 Consider outpatient follow-up #History of pulmonary nodule 10 mm seen on imaging last visit, [place] Plan: ? XR chest, now ? Consider CT chest outpatient #Substance abuse U-Tox last week and now shows meth positive Plan: ? therapeutic activities services worker referral #Health Maintenance Disposition: Telemetry DVT prophylaxis: SCDs GI prophylaxis: Protonix Diet: Regular CODE STATUS: Full Patient seen and care discussed with my attending physician, Dr. Vielka Barber, PGY-1 Attending Provider Attestation/Addendum I have examined the patient, reviewed labs and imaging findings, discussed the case with the resident(s), and reviewed entered orders. I agree with the plan of care as outlined in this note, with these additional summaries/recommendations: Patient seen at bedside. No acute overnight events. Patient still has some facial weakness and numbness when smiling. MRI showed more pronounced acute infarcts in the left basal ganglia and left caudate nucleus compared to prior study. Findings are concerning for new CVA. In-house neurology consulted, recommendations appreciated. Continue DAPT therapy and high intensity statin. Additional hypercoagulable panel still pending although at this time I feel patient's biggest risk factor for CVA at such a young age is her continued methamphetamine abuse. We will consult social media director for resources. Continue to control vascular risk factors. We will defer transthoracic echocardiogram given patient had the study completed within the last week. We will continue to monitor with frequent neurochecks given patient likely had 2 CVAs in less than 1 week. If no further symptoms and cleared by neurology then patient can likely be discharged in the next 24 to 48 hours. Leukocytosis present although most likely reactive secondary to substance abuse +/- CVA and we will continue to monitor with daily CBC. No antibiotics needed at this time. Dr. Vielka MD
--- NOTE | 2024-10-07 15:10 | PC.SS ---
Patient's tox screen is positive for meth. SS met with pt to discuss resources for meth use. Pt states she last used meth on Thursday. Pt states she uses meth every now and then for the past 8 years. SS offered community resources and pt declined.
[2024-10-07 16:00] VITALS: BP 151/99; PULSE 85; RESP 17; TEMP 36.3; O2SAT 99
--- NOTE | 2024-10-07 16:20 | PC.NURSE ---
Despite our efforts, CHAD HAMILTON, has decided to leave against medical advice (AMA). Patient was admitted for CVA rule out.? Patient is alert and oriented x4 and capable of making her own decisions regarding her treatment plan. Dr. Vora, at bedside. Stroke education attempted to be given but patient refused. The patient understands his current diagnosis and the risks of leaving AMA, including but not limited to permanent disability and . Mrs. Hamilton was given the opportunity to ask questions about her condition. Patient's at bedside and was also educated on the risks. Patient was given education on returning to the hospital for care at any time.
--- NOTE | 2024-10-07 16:37 | ESDS_ITS ---
<Statement entered by Jazmyn Toth MD - 10/07/24 22:33> Patient was seen and examined at bedside. Patient was adamant about leaving AMA. Discussion regarding the risks of leaving AMA as per the note below was discussed with the patient. All questions were answered to patient's satisfaction. - Patient's plan and care discussed with my attending, Dr. Vielka Toth MD Internal Medicine PGY-2 Planned Discharge Date 10/07/24 DS: Providers Provider Date of admission: 10/06/24 11:11 Primary care physician: Physician No Primary/Family Admitting Provider: Alonzo Vora MD Attending Provider on Admission: Alonzo Vora MD Consults: 10/06/24 08:46 Consult to Neurology / Tele-Neurology Routine Comment: Consulting Provider: [facility] 10/06/24 11:15 Consult to Neurology / Tele-Neurology Routine Comment: Consulting Provider: [place] Daniels Referral Physical Therapy Routine Comment: Physician Instructions: Referral Speech Therapy Routine Comment: Attending Provider on DC: Alonzo Vora MD Discharging Provider: Alonzo Vora MD DS: Diagnosis Problem List Completed Was Problem List Reviewed/Reconciled?: Yes Hospital Course Hospital Course Hospital course: Patient has left AMA requesting to leave and go to another hospital. It was discussed with her in regards to risks of leaving despite not being medically cleared however patient signed AMA paperwork and left Jasmin is a 39 y/o female with PMHx of hypertension, previous CVA (September 2024), and von Willebrand disease who comes to [facility] on October 06, 2024 for subacute CVA versus stroke recrudescence. Patient had come to the ED last week and was diagnosed with CVA of the left caudate nucleus and basal ganglia on 10/03/2024 and was discharged on dual antibiotic therapy, however upon this visit she developed some tongue numbness and axillary numbness with no other residual motor or sensory deficits in upper and lower extremities. She came to the ED vitals of a blood pressure 141/79, heart rate 72, respiratory rate 15, temperature 98.1, saturating 98% on room air. She was worked up was found to have a sodium 140, potassium 4, BUN/creatinine 14 and 0.9 respectively, glucose 108, coag panel negative, osmolarity 280, white count 15.6, hemoglobin 12.5, platelets 302, ACL 216, calcium 9.6, troponin negative x 1. EKG showed normal sinus rhythm at a rate of 68, QT 404. Head CT was ordered and showed negative for acute hemorrhage or midline shift. Teleneuro was consulted with seen the patient and recommended no TNK, and evaluated patient with NIHSS score of 2. They also recommended further workup including MRI of brain for stroke workup. Medicine consulted and patient was admitted to the floors floors. While on the floors, patient was continued with dual antibiotic therapy and asked him to be statin. Patient was seen by speech and physical therapy in which she was medically cleared. Patient was also seen by neurology who had recommended for patient to get MIGUELINA. Hypercoagulable panel had been sent out for patient in which she was negative for factor V Leiden. Throughout the course of the admission, however patient decided that she wants to leave AMA. Risk of leaving were discussed with the patient and patient's continued to insist that she wanted to leave and go to a different hospital. Patient signed AMA paperwork and was recommended to continue to take electrolyte therapy, high density statin, and follow-up with her PCP and neurologist. Patient having stroke and possible subacute stroke was likely due to her substance abuse including meth. It was informed to her to have cessation of this substance as this puts her at high risk for stroke. Patient also had social media strategist discussed with her substance cessation as well. It was also discussed about her pulmonary nodule in the left upper lobe in which she will need surveillance with CT outpatient. Disclaimers The patient has decided to leave AGAINST MEDICAL ADVICE because she wants to go to a different hospital and had said that she was told different things in reg ards to her condition. It was explained to her that she was being worked up for a acute stroke and that she need to continue to be medically monitored and to continue with medical therapy. The patient was able to understand state the risk and benefits of hospital admission. They also had the opportunity to ask questions about their medical condition. It was discussed with the patient to avoid substance abuse including meth in which we believe that this is a high risk for her and the culprit of her having a stroke. If she does use meth upon discharge she is at high risk for recurrent stroke and she was advised and informed to avoid this substance and other substances. The patient agreed with this information and signed AMA paperwork. Discharge instructions: Follow-up within 1 week with your PCP Continue taking dual antiplatelet therapy including aspirin and Plavix Follow up with neurologist, Dr. Daniels within 1 week Return to ER if symptoms worsen or return Avoid any substance abuse Problem list #Acute CVA vs stroke recrudescence #History of stroke #Hypertension #History of von Willebrand disease #History of pulmonary nodule, SALENA 10mm #Substance abuse Discharge summary was reviewed with my attending Dr. Vielka Barber, PGY-1 Time Spent with Patient Time attestation: Total time spent providing and/or coordinating discharge services: Time spent: Greater than 30 minutes Quality: Stroke Pt Provided Written Stroke Discharge Instructions: Yes (WILL REPRINT AT D/C) Exam Vital Signs Temp Pulse Resp BP Pulse Ox O2 Del Method 97.4 F 85 17 151/99 H 99 Room Air 10/07/24 16:00 10/07/24 16:00 10/07/24 16:00 10/07/24 16:00 10/07/24 16:10/07/24 16:00 Narrative Exam General: AAOx3, NAD, obese, wearing glasses, has colored hair HEENT: Dry mucous membranes, conjunctiva clear, EOMI, PERRLA, poor dentition Cardiovascular: S1, S2, radial pulses +2 bilat, RRR, no murmurs auscultated Pulmonary: CTAB bilat no cough, no wheezing GI: No tenderness to light or deep palpitation, no guarding, rigidity, rebound tenderness or distension Extremities: No presence of trace or pitting edema in lower extremities bilaterally, dorsalis pedis pulses +2 bilaterally Neuro: AAOx3, no focal motor or sensory deficits in the UE or LE bilat, filling defect of cheeks when she puffs then up, some residual facial droop when smiling, some maxillary numbness still present Psych: Good judgement, thought and behavior. Cooperative Discharge Plan Plan Patient Disposition: Left Against Medical Advice Care Plan Goals: Discharge instructions: Follow-up within 1 week with your PCP Continue taking dual antiplatelet therapy including aspirin and Plavix Follow up with neurologist, Dr. Daniels within 1 week Return to ER if symptoms worsen or return Avoid any substance abuse Prescriptions/Referrals Prescriptions/Med Rec: Continued diphenhydramine HCl [Benadryl Allergy] 25 mg tablet 25 mg PO Q6H Qty: 30 0RF guaifenesin 400 mg tablet 400 mg PO Q6H Qty: 20 0RF lisinopril 40 mg tablet 40 mg PO QDAY Patient Comments: TAKE 1 TABLET BY MOUTH EVERY DAY ketoconazole 2 % cream 1 applic TOPICAL BID Patient Comments: APPLY BY TOPICAL ROUTE TWICE A DAY TO THE AFFECTED AREA(S) Rx Instructions: Left foot triamcinolone acetonide 0.1 % cream 1 applic TOPICAL BID Patient Comments: APPLY THIN COAT TO AFFECTED AREA TWICE A DAY Rx Instructions: Left foot aspirin [Ecotrin Low Strength] 81 mg Tablet,Delayed Release (Dr/Ec) 81 mg PO QDAY 30 Days Qty: 30 0RF clopidogrel 75 mg Tablet 75 mg PO QDAY 20 Days Qty: 20 0RF atorvastatin 80 mg tablet 80 mg PO QPM 30 Days Qty: 30 0RF Referrals: No Primary/Family,Physician [Primary Care Provider] - Patient/Caregiver Discharge Instructions Education Materials: Preparing Your Home After Stroke, Discharge Instructions for Stroke Print Language: Yoruba Quality Discharge Quality Measures VTE prophylaxis (SCDs) Attestestation MD Attestation I have examined the patient, reviewed labs and imaging findings, discussed the case with the resident(s), and reviewed entered orders. I agree with the plan of care as outlined in this note. Time Spent: [address] Vielka MD
== END 2024-10-07 16:10 | disposition left against medical advice (07) | DRG 45 ==
LOC: SERX 09:59 → SERHOLD 11:25 → S2NX 15:10
PROVIDERS: Admitting Provider Student in an Organized Health Care Education/Training Program; Emergency Provider Emergency Medicine; Visit Provider Student in an Organized Health Care Education/Training Program
DX: I63.9 Cerebral infarction, unspecified (principal); I10 Essential (primary) hypertension; G81.91 Hemiplegia, unspecified affecting right dominant side; R29.702 NIHSS score 2; R91.1 Solitary pulmonary nodule; F15.10 Other stimulant abuse, uncomplicated; D72.829 Elevated white blood cell count, unspecified; G51.0 Bell's palsy; D68.00 Von Willebrand disease, unspecified; Z53.29 Procedure and treatment not carried out because of patient's decision for other reasons; F17.210 Nicotine dependence, cigarettes, uncomplicated
CPT/HCPCS: 36415; 70450; 70544; 71045; 80053; 80061; 80307; 81001; 81241; 83090; 83735; 84100; 84484; 84703; 85025; 85300; 85301; 85302; 85303; 85305; 85610; 85613; 85730; 86146; 86147; 86148; 87086; 92610; 93005; 97161; 99291; J2470; A9270